=== PATIENT | female | born 1950 | race Caucasian/White ===

== ENCOUNTER 2018-12-11 01:37 | Outpatient (CLI) | payer MEDICARE, BC, SELFPAY ==
--- NOTE | 2018-12-11 11:21 | DI.MAMMO_ITS ---
SYMPTOM/DIAGNOSIS: SCREENING, Z12.31 MAMMOGRAMS: Mammograms were interpreted according to the usual protocol including computer analysis with CAD system, tomosynthesis and C view imaging. Comparison is made with exams from [id number]. The breasts are composed of heterogeneously dense fibroglandular tissue, breast density, Category C. No suspicious masses or suspicious microcalcifications are seen. There has been no significant change. IMPRESSION: Category 1C, negative mammogram. Yearly screening mammography is recommended. [facility] ASSESSMENT OF FINDINGS: Negative. Category 1. Patient will receive a letter notifying them of these results. Bi-RADS category C. The breasts are heterogeneously dense, which may obscure small masses.
== END 2018-12-11 01:57 ==
PROVIDERS: PCP Family Medicine; Visit Provider Family Medicine
DX: Z12.31 Encounter for screening mammogram for malignant neoplasm of breast (principal)
CPT/HCPCS: 77063; 77067

== ENCOUNTER 2019-12-06 11:03 | Outpatient (CLI) | payer MEDICARE, BC, SELFPAY ==
--- NOTE | 2019-12-06 10:59 | DI.RAD_ITS ---
EXAM: XR KNEE RT 3V AP,LAT,ELIZABET CLINICAL HISTORY: KNEE PAIN TECHNIQUE: COMPARISON: No exams were available for comparison FINDINGS: Three views were obtained. Cartilaginous joint spaces appear fairly well maintained. Minimal margin al osteophyte formation noted at the medial tibiofemoral joint. No other significant bony abnormalit y seen. IMPRESSION: Minimal degenerative changes of medial tibiofemoral joint.
== END 2019-12-06 11:23 ==
PROVIDERS: PCP Family Medicine; Referring Provider Family Medicine; Visit Provider Student in an Organized Health Care Education/Training Program
DX: M25.561 Pain in right knee (principal); M17.11 Unilateral primary osteoarthritis, right knee
CPT/HCPCS: 73562; 99214

== ENCOUNTER 2020-01-24 08:52 | Outpatient (CLI) | payer MEDICARE, BC, SELFPAY ==
--- NOTE | 2020-01-24 11:00 | DI.RAD_ITS ---
EXAM: XR SHOULDER RT COMPLETE 2+V INDICATION: r shoulder pain M25.519. COMPARISON: No exams were available for comparison TECHNIQUE: 2D digital imaging was performed. FINDINGS: No fracture or dislocation is seen. There are mild degenerative changes of the AC joint and glenoh umeral joint. The humeral head is normally position. No tendon or joint space calcifications are se en. IMPRESSION: Mild degenerative changes. DATA REPOSITORY: RADIATION DOSE DELIVERED:
== END 2020-01-24 09:12 ==
PROVIDERS: PCP Family Medicine; Visit Provider Family Medicine
DX: M25.511 Pain in right shoulder (principal); M19.011 Primary osteoarthritis, right shoulder
CPT/HCPCS: 73030

== ENCOUNTER → 2020-07-21 10:56 | Outpatient (BNVA) | payer MEDICARE, BC, SELFPAY | PROVIDERS: PCP Family Medicine; Referring Provider Family Medicine; Visit Provider Student in an Organized Health Care Education/Training Program | DX: M25.511 Pain in right shoulder (principal); X50.9XXA Other and unspecified overexertion or strenuous movements or postures, initial encounter; I10 Essential (primary) hypertension | CPT/HCPCS: 99213 ==

== ENCOUNTER 2020-08-05 03:34 | Outpatient (CLI) | payer MEDICARE, BC, SELFPAY ==
--- NOTE | 2020-08-05 06:45 | DI.MRI_ITS ---
EXAM: MR UPPER JOINT RT WO CLINICAL HISTORY: RT SHOULDER PAIN, ROTATOR CUFF RUPTURE,M75.100,M25.519. TECHNIQUE: Multiplanar multisequence MRI was performed. COMPARISON: Plain films dated 24 January 2020. FINDINGS: Bones: There is no fracture or contusion pattern. There is a small amount of fluid in the AC joint and mild hypertrophic changes. There is a full-thickness tear of the supraspinatus tendon with retraction to the level of the glenoid. There is moderate muscle atrophy, Goutallier grade 3. There is also abnor mal high signal in the infraspinatus tendon consistent with a partial tear versus tendinitis. There i s no infraspinatus muscle atrophy. The subscapularis, teres minor and biceps tendons are intact. Th ere is a small amount of fluid in the subcoracoid bursa. The labrum appears intact. IMPRESSION: Full-thickness tear with retraction of the supraspinatus tendon. Infraspinatus tendinitis versus par tial tear. DATA REPOSITORY:
== END 2020-08-05 03:54 ==
PROVIDERS: PCP Family Medicine; Visit Provider Student in an Organized Health Care Education/Training Program
DX: M75.101 Unspecified rotator cuff tear or rupture of right shoulder, not specified as traumatic (principal); M25.511 Pain in right shoulder
CPT/HCPCS: 73221

== ENCOUNTER 2020-08-15 08:23 | Outpatient (CLI) | payer MEDICARE, BC, SELFPAY ==
[2020-08-16 17:56] LABS: COVID-19 RT-PCR Result NEGATIVE (Negative)
== END 2020-08-15 08:43 ==
PROVIDERS: PCP Family Medicine; Visit Provider Student in an Organized Health Care Education/Training Program
DX: M75.121 Complete rotator cuff tear or rupture of right shoulder, not specified as traumatic (principal)
CPT/HCPCS: U0003

== ENCOUNTER 2020-08-20 09:38 | Day surgery (SDC) | payer MEDICARE, BC, SELFPAY ==
[2020-08-20 09:47] VITALS: BP 133/83; PULSE 84; RESP 20; TEMP 36.7; O2SAT 94
--- NOTE | 2020-08-20 10:03 | W.PM.DSUDISC ---
Discharge Plan Disposition Patient Disposition: HOME Condition: Good Discharge Details Reason For Visit: Right Rotator Cuff Tear Attending Provider: Ridge Harrison Primary Care Provider: Ruth Jean Baptiste Home Meds and New Rx's Prescriptions: New acetaminophen 500 mg tablet 1,000 mg PO Q8H PRN (Reason: pain) Qty: 90 RF: 3 celecoxib 200 mg capsule 200 mg PO BID PRN (Reason: pain) Qty: 60 RF: 1 oxycodone 5 mg tablet 5 mg PO Q6H Qty: 10 RF: 0 Continued mupirocin 2 % ointment 1 applic Topical BID PRNRF: 0 famotidine 20 MG tablet 1 tab PO bid prn RF: 0 epinephrine [EpiPen 2-Melchor] 0.3 MG/0.3 ML auto-injector 0.3 mg IM ONCE Qty: 1 RF: 2 acyclovir [Zovirax] 30 GM ointment 1 applic Topical TID PRN Qty: 30 RF: 4 Discharge Instructions Additional Instructions: If Celebrex is too expensive, you may take 1-2 Aleve (Naproxen) twice a day in its place. Physical Therapy should start between 2 and 3 weeks after surgery. Stand Alone Forms: Hunter reardon/RCR Referrals: Ridge Harrison MD [ [facility] STAFF PHYSICIAN] - Equipment/Supplies: Sling Activity:: In sling Remove Dressings/Wound Care:: 72 hours Shower/Bathe:: 72 hours Diet:: As Tolerated Discharge Orders Discharge Orders: Discharge Order (Routine); Ordered 08/20/20 Ordered By: Ridge Harrison DS: Diagnosis Discharge Diagnosis (1) Complete tear of right rotator cuff: Status: Chronic (2) Arthritis of right acromioclavicular joint: Status: Acute (3) Superior labrum [id number] (SLAP) tear of right shoulder: Status: Acute
[2020-08-20] MEDS: Lactated Ringers 1,000 ML 80 ML IV ×2 (10:44→13:15)
[2020-08-20] MEDS: Bupivacaine LIPOSOME/PF 133 MG/10 ML VIAL IJ (11:18)
[2020-08-20] MEDS: Bupivacaine 0.5% Pres-Free 30 ML VIAL (11:18)
[2020-08-20] MEDS: ceFAZolin 2 GM/50 ML BAG IVPB (12:05)
[2020-08-20] MEDS: EPINEPHrine 30 MG/30 ML VIAL (13:21)
[2020-08-20 14:44] VITALS: BP 125/64; PULSE 70; RESP 18; TEMP 36.4; O2SAT 97
--- NOTE | 2020-08-20 14:47 | W.PM.OP ---
Date of service: 08/20/20 Time of Service: 14:47 Operative Note Operative Note DATE OF PROCEDURE: 08/20/20 PRE-OP DIAGNOSIS: Right Rotator Cuff Tear - Supraspinatus, Right AC Arthritis POST-OP DIAGNOSIS: same PROCEDURE: - Mini-Open Distal Clavicle Excision - Arthroscopic Rotator Cuff Repair - Extensive debridement of anterior and posterior glenohumeral joint and rotator cuff - Subacromial Debridement with Acromioplasty SURGEON: Ridge Harrison GRATING MACHINE OPERATOR: Brent Mckeon ANESTHESIA: GETA and regional ESTIMATED BLOOD LOSS: 0 PATHOLOGY: none sent COMPLICATIONS: None Patient was transported to: PACU Patient's condition: stable Indications: I have seen Jo in clinic for a painful shoulder. Pathology was confirmed based on MRI and exam findings. Nonoperative measures were exhausted but disability and pain persisted. I discussed shoulder arthroscopy and procedures. I reviewed the risks of the procedures to include, but not limited to, bleeding, infection, pain, stiffness, damage to nerves or vessels, recurrence, hardware failure, blood clot. Despite these risks, the patient elected to proceed. Findings: There were signs of arthrosis of the distal clavicle; a 1cm wedge was resected A diagnostic arthroscopy was performed with the following findings: Articular Side - Glenohumeral Joint: Minimal arthritic change - Labrum: No labral tear. No anchor detachment - Cuff: Complete tear of supraspinatus with an attachment to infraspinatus - Biceps: No tear, no inflammation Subacromial Side - Bursal: Thick inflammatory changes - Rotator Cuff: Large stump of tissue attached laterally at the tuberosity with a split torn L shaped supraspinatus tear medial to the glenoid - Mild anterolateral spur Procedure Description: Jo was greeted in the preoperative holding area where the correct side was identified and marked. The consent was reviewed with the patient and signed. The history and physical was updated. All questions were answered. Jo was taken back to the PACU for administration of an intrascalene nerve block. Jo was then taken to the operating room. The patient was placed into the supine position on the operating room table. A general anesthetic was administered. She was then positioned in the beach chair position. All bony prominences were well padded. The head was placed in a foam heading and priming operator in a neutral position. Prophylactic antibiotics in the form of Cefazolin were administered. The right arm/shoulder was then prepped with Chloraprep and draped in a standard fashion with stockinette and shoulder drape. A timeout to confirm correct identity, side and site, procedure, allergies, anesthesia, and medical concerns was performed. The arm was placed into a pneumatic marcum, SPIDER2. The distal clavicle was approached through a 2 centimeter incision within Shana's lines. This was made overlying the AC joint. The skin was incised sharply. The deeper tissues dissected with electrocautery. The clavipectoral fascia was identified and incised longitudinally off of the distal clavicle and onto the acromion. This was reflected subperiosteally to expose the distal clavicle and the AC joint. With adequate exposure a 1 cm bony resection was made using an oscillating saw. This is angled posteriorly to avoid any posterior impingement. Once it was fully resected, it was inspected to make sure it is of adequate width. A rasp was used to smooth the bony edges inferiorly and posteriorly primarily. A small amount of bone wax was placed on the end of the distal clavicle. The wound was thoroughly irrigated. There is no active bleeding. The clavipectoral fascia was then closed with a 0 Vicryl in a watertight fashion. The subcutaneous tissues were then reapproximated with a 2-0 Vicryl. The shoulder arthroscopy was then performed. The glenohumeral joint was injected with 20 cc of normal saline with good flow back. A standard posterior portal was made and the joint was entered atraumatically with a blunt arthroscope. Once inside we had good visualization of the structures of the glenohumeral joint. An anterior portal was established with spinal needle localization. A 6.5 mm cannula was inserted. A probe was then used to perform a diagnostic arthroscopy. There is noted to be no significant cartilage damage of the glenoid humeral joint. The labrum was intact anteriorly and posteriorly. There were no loose bodies in the inferior pouch. The superior rotator cuff was torn. The infraspinatus was well attached. The exposed footprint started posteriorly and extended anteriorly to the point of being full-thickness. The biceps tendon was without tearing. The subscapularis was intact. There was notable inflammatory changes seen around the shoulder itself and these were debrided on the inside with the anterior to posteriorly. Some the rotator was also debrided for visualization of the subscapularis The arthroscope was then inserted into the subacromial space. The 6.5 mm cannula was placed lateral to the CA ligament. A complete bursectomy is performed anteriorly, posteriorly, and laterally with electrocautery and shaver. This had excellent exposure of the rotator cuff. 2 lateral working portals were then established 1 with a 7.5 mm cannula the other with a 6.5 mm cannula. The bursal side rotator cuff was notably torn with the infraspinatus attached to the tuberosity. The stump of the supraspinatus tendon was seen well medial to the glenoid. There is a portion of the supraspinatus which extended and attached and merged with the infraspinatus. There is also substantial amount of anterior tissue, likely from the rotator interval, which was present as well. The exposed tuberosity was debrided down to reduce healing. A grasper was used to mobilize the soft tissues to evaluate mobility. Unfortunately, there is very little mobility of the supraspinatus stump. Therefore I started with electrocautery to remove any bursal tissue attached to it and to expose the undersurface of the acromion all the way to the scapular spine. I also used tissue liberator's to free up the surfaces of the supraspinatus tendon for better mobility. There was this attached portion of the supraspinatus stump to the infraspinatus which I left intact. I considered an interval slide but I did not think was going to give me any further lateral motion of the stump and I was concerned that would lose whatever benefit that extension was providing. Therefore, I performed a marginal convergence working to bring the stump of the supraspinatus tendon more lateral. There still is very little mobility and I utilize the rotator interval tissue to help move this tissue from posterior to anterior and more lateral. 2 Medial Row anchors were then placed. These were 4.5 mm Mytec Healix anchors. The more posterior anchor was utilized to pull some of the infraspinatus and attachment of the remnant supraspinatus down to the footprint. The more anterior anchor was then utilized to bring the converged tissue back down. Once again, utilizing some of the rotator interval. These were placed with a retrograde suture passing device in a horizontal mattress fashion. This was able to mobilize the tissue significantly such that there was no exposed joint. However, the most anterior 4 mm of the tuberosity had tissue at the articular margin but not much over it. However, there was notable improvement from initial state. Therefore I went ahead and tied the medial row sutures. A lateral anchor was utilized to secure the posterior anchors once again trying to secure the tissue from posterior to anterior. There was a small anterolateral spur. A 5.0 mm solis was then inserted from the posterior portal while being viewed from the lateral portal. The anterolateral corner of the acromion was then resected in plane with the posterior slope of the acromion. The scope equipment was removed from the shoulder. Excess fluid was evacuated. The portal sites were closed with 3-0 Monocryl. The wounds were dressed with Steri-Strips, 4 x 4's, ABDs, Medipore tape. A sling was applied. The patient tolerated the procedure well and was returned to the PACU in a stable condition suffering no known complication.
[2020-08-20 14:49] VITALS: BP 115/61; PULSE 72; RESP 21; TEMP 36.4; O2SAT 96
[2020-08-20 14:54] VITALS: BP 112/68; PULSE 71; RESP 20; TEMP 36.4; O2SAT 95
[2020-08-20 15:10] VITALS: BP 119/73; PULSE 73; RESP 19; TEMP 36.6; O2SAT 97
[2020-08-20 15:55] VITALS: BP 112/68; PULSE 70; RESP 18; TEMP 36.5; O2SAT 94
== END 2020-08-20 16:54 | disposition home or self-care (01) ==
PROVIDERS: PCP Family Medicine; Visit Provider Student in an Organized Health Care Education/Training Program
PROC: (CPT 29827; principal; 2020-08-20 13:15)
DX: M75.121 Complete rotator cuff tear or rupture of right shoulder, not specified as traumatic (principal)
CPT/HCPCS: 29827; 23120; 29826; 76942; L3670; J0690; J1100; J2001; J2405

== ENCOUNTER 2020-09-16 19:43 | Inpatient (IN) | payer MEDICARE, BC, SELFPAY ==
[2020-09-16] VITALS (10 sets, daily range): BP systolic 147–174; BP diastolic 61–87; PULSE 60–85; RESP 14–24; TEMP 36.6–37.1; O2SAT 97–100
--- NOTE | 2020-09-16 19:45 | W.ED.GENAD ---
Discharge Plan Disposition Patient Disposition: [facility] INPATIENT Condition: Fair Discharge Details Chief Complaint: Abd Prob Reason For Visit: SMALL BOWEL OBSTRUCTION Admit Date/Time: 09/16/20 21:16 Admit Provider: Margarita Whittaker Attending Provider: Margarita Whittaker Primary Care Provider: Ruth Jean Baptiste ED Provider: Bibi Christie Home Meds and New Rx's Prescriptions: No Action mupirocin 2 % ointment 1 applic Topical BID PRNRF: 0 famotidine 20 MG tablet 1 tab PO bid prn RF: 0 epinephrine [EpiPen 2-Melchor] 0.3 MG/0.3 ML auto-injector 0.3 mg IM ONCE Qty: 1 RF: 2 acyclovir [Zovirax] 30 GM ointment 1 applic Topical TID PRN Qty: 30 RF: 4 acetaminophen 500 mg tablet 1,000 mg PO Q8H PRN (Reason: pain) Qty: 90 RF: 3 celecoxib 200 mg capsule 200 mg PO BID PRN (Reason: pain) Qty: 60 RF: 1 Medical Decision Making Patient is a pleasant 70-year-old female presenting today with chief complaint of sudden onset abdominal pain. She reports the pain began at 6 PM when she was sitting in a chair. Reports a sudden onset of severe pain and indicates a low central abdomen. States the pain can radiate into her back. Endorses nausea and vomiting. Last ate at noon at which time she had potato skins. States she had been feeling well after eating initially. States she did have a small bowel movement this evening but is not passing any flatus. 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 She is subsequently followed yearly by oncology. Last had a scan on 03/27/2020 at which time the exam was noted to be stable. Of note, patient did not have any evidence to suggest aneurysm. Labs were stable at that time. Patient has not had pain like this historically. On exam, patient appears very uncomfortable. She is writhing and moaning in pain. Her abdomen is exquisitely tender and distended. Firm to palpation with guarding. This is particularly significant in the low central abdomen. I do not appreciate a pulsatile mass but secondary to her moving, my exam is limited. She is 2+ distal pulses in her lower extremities. No CVA tenderness. Lungs and cardiac exam are normal. Plan for immediate CT scan. I am concerned with radiation into the back which she may have aortic pathology. Also considered potential obstruction based on the patient's previous surgical interventions. Patient will be given IV acetaminophen. Patient is feeling improved after IV Zofran. I reviewed the imaging and did not appreciate any aortic involvement. However, her exam is concerning for small bowel obstruction. We will augment the Tylenol with Toradol. FINDINGS: Pulmonary arteries: Normal. No pulmonary emboli. Aorta: No aortic aneurysm. No aortic dissection. Lungs: No consolidation. No masses. Pleural space: Unremarkable. No pneumothorax. No pleural effusion. Heart: No cardiomegaly. No pericardial effusion. Lymph nodes: Unremarkable. No enlarged lymph nodes. Bones/joints: No acute fracture. Soft tissues: Unremarkable. IMPRESSION: No aneurysm or dissection of the thoracic aorta FINDINGS: Aorta: No aortic aneurysm. No aortic dissection. Celiac trunk and mesenteric arteries: No occlusion or significant stenosis. Renal arteries: No occlusion or significant stenosis. Right iliac arteries: No occlusion or significant stenosis. Left iliac arteries: No occlusion or significant stenosis. Liver: No mass. Gallbladder and bile ducts: Unremarkable. No calcified stones. No ductal dilation. Pancreas: Unremarkable. No mass. No ductal dilation. Spleen: Unremarkable. No splenomegaly. Adrenals: Unremarkable. No mass. Kidneys and ureters: Unremarkable. No solid mass. No hydronephrosis. Stomach and bowel: Multiple loops of mildly dilated distal small bowel concerning for obstruction. No mucosal thickening. Appendix: A normal appendix is identified. Intraperitoneal space: Unremarkable. No free air. No significant fluid collection. Lymph nodes: Unremarkable. No enlarged lymph nodes. Urinary bladder: Unremarkable. No mass. Reproductive: Unremarkable as visualized. Bones/joints: No acute fracture. No dislocation. Soft tissues: Unremarkable. IMPRESSION: No aneurysm or dissection of the abdominal aorta. Multiple loops of mildly dilated distal small bowel concerning for obstruction. Patient continues to writhe in pain after toradol and tylenol. Patients PCP, Dr. Jean Baptiste is at bedside. We discussed ativan. Patient given half milligram of Ativan and is feeling much improved. Consulted with Dr. Whittaker. She advised NGT. She agrees to admission and will place orders. Patient [address] NG tube. However, even with the tube in place, patient was not able to tolerate at this and continue to vomit and gag probably dislodging the tube. We will hold off on this. She is denying any nausea at this time. Patient has remained n.p.o. since being here. HPI General Mode of arrival: ambulatory. Date/Time Provider Initiated Documentation: 09/16/20 19:45. Limitations to Documentation: no limitations. Information obtained by: patient, family (signficant others), RN notes reviewed and old records reviewed (most recent labs and imaging from [facility]). History of Present Illness 70 year old F presents to the emergency department with the chief complaint of severe abdominal pain, described as moderate, with intensity rated at 7. Quality is described as stabbing, and is localized to the abdomen. Patient reports radiation to back. Patient started experiencing this hour(s) (1800) and it has been constant. No relieving factors improve symptom(s), No exacerbating factors reported . Patient notes loss of appetite and nausea/vomiting; denies chest pain, cough, diaphoresis, fever/chills, rash, shortness of breath and weakness. Patient did receive the following treatments prior to arrival, none Related Data Home Medications Medication Instructions Recorded Confirmed famotidine 1 tab PO bid prn tab-cap 02/24/13 09/16/20 epinephrine [EpiPen 2-Melchor] 0.3 mg IM ONCE #1 pen 04/26/15 09/16/20 acyclovir [Zovirax] 1 applic TOPICAL TID PRN #30 gm 03/28/18 09/16/20 mupirocin 2 % topical ointment 1 applic TOPICAL BID PRN gm 12/05/18 09/16/20 acetaminophen 1,000 mg PO Q8H PRN #90 tab 08/20/20 09/16/20 celecoxib 200 mg PO BID PRN #60 cap 08/20/20 09/16/20 Previous Rx's Medication Instructions Recorded acyclovir [Zovirax] 1 applic TOPICAL TID PRN #30 gm 03/28/18 acetaminophen 1,000 mg PO Q8H PRN #90 tab 08/20/20 celecoxib 200 mg PO BID PRN #60 cap 08/20/20 Allergies Allergy/AdvReac Type Severity Reaction Status Date / Time venom-wasp Allergy Severe Anaphylaxsi Unverified 09/16/20 19:52 s venom-honey bee Allergy Unknown Verified 09/04/20 10:53 Review of Systems Constitutional Constitutional: Reports as per HPI, Denies chills, Denies fatigue, Denies fever(s) and Denies headache(s) ENT Ears, Nose, Mouth, and Throat: Denies headache(s) Cardiovascular Cardiovascular: Reports as per HPI, Denies chest pain and Denies dyspnea Respiratory Respiratory: Reports as per HPI, Denies cough and Denies dyspnea Gastrointestinal Gastrointestinal: Reports as per HPI Musculoskeletal Musculoskeletal: Reports as per HPI and Denies back pain Integumentary/Breasts Skin/Breast: Reports as per HPI and Denies rash Neurologic Neurologic: Reports as per HPI and Denies headache(s) Endocrine Endocrine: Denies fatigue [facility] Medical History Alcohol intake above recommended sensible limits 03/05/14 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) [facility] partial gastrectomy Dec 2012, Gleevec tx History of postoperative nausea and vomiting Hyperlipidemia Knee pain h/o knee injury Nasal lesion (03/28/18) Neck pain PAC (premature atrial contraction) (07/26/17) frequent - see 07/26/17 Pain in left buttock 04/05/17 Quit smoking 1985 Trigger point of right shoulder region (03/28/18) infraspinatus and rhomboid Vaginal atrophy (05/03/16) Surgical History Dilation and curettage uterine perforation H/O arthroscopy of knee Left - ~1977 Right - 2017 History of carpal tunnel release Right PROCEDURES TUMOR REMOVAL 01/11/2013 S/P dilatation and curettage uterine perforatioin Status post arthroscopy of right shoulder (08/20/20) Mini-Open Distal Clavicle Excision; Arthroscopic Rotator Cuff Repair - Supraspinatus; Extensive debridement of anterior and posterior glenohumeral joint and rotator cuff; Subacromial Debridement with Acromioplasty Family History Mother , AGE 76 Essential hypertension Alzheimers disease Hyperlipidemia Father , AGE 78 Essential hypertension Heart disease Hyperlipidemia Stroke Brother Essential hypertension Hyperlipidemia Maternal Grandmother , AGE 78 Essential hypertension Heart disease Paternal Grandmother , AGE 89 Alzheimers disease Heart disease Social History Smoking/Tobacco Use Status: Former Tobacco Use Quit Date: 11/28/85 Second Hand Exposure: Yes Alcohol Intake: current Alcohol Intake frequency: 0-2 drinks per day Alcohol type: beer, wine and hard liquor Drug use: Never Substance use type: does not use Caregiver/Support person: No Household members: spouse Pets and animals: Yes Pets and animals: cat(s) Sexually active: Yes Do you think of yourself as: straight/heterosexual Current gender identity: female What is your relationship status?: How often do you talk on the phone with friends or family?: three or more times per week How often do you get together with friends or relatives?: decline to answer How often do you attend evangelical or mandaen services?: decline to answer Do you belong to any clubs or organized social groups?: yes Panel score (0-1 are the most socially isolated patients): 3 What type of physical activity do you participate in: walking and other Details: some tennis Duration: 45-60 minutes/day Frequency: 5-6 times per week Sindi/Denominational: None Special sindi needs: No Seatbelt use: always Helmet use: Yes Helmet use: always Drive intox or ride w/intox school boat driver: No Do you feel safe at home: Yes Do you feel safe in your relationship?: Yes Exam Const General: cooperative, not healthy appearing, uncomfortable, well developed, anxious, not diaphoretic and ill appearing acutely Nutritional Appearance: average body habitus and well nourished Orientation: alert and awake [facility] Head: normal to inspection Mouth: moist mucous membranes Resp Effort & Inspection: normal respiratory effort, able to speak in complete sentences and no respiratory distress Auscultation: clear to auscultation bilaterally, no rales, no rhonchi and no wheezes Cardio Rate: regular rate Rhythm: regular rhythm Heart Sounds: S1 normal and S2 normal GI Inspection: no abdominal wall ecchymosis, distended, no large pannus and scar Palpation: no hepatosplenomegaly, firm (lower half of abdomen), guarding in the LLQ and in the RLQ, no hernias, no masses, no pulsatile masses, tender (diffuse pain) with rebound tenderness and No ascites Percussion: normal to percussion Auscultation: hypoactive bowel sounds Back/Spine/Pelvis Back: no CVA tenderness Skin General skin exam: no rashes or lesions noted Trauma: no lacerations or abrasions Neuro General: patient alert and patient awake Cognition: normal cognition Speech: speech normal Gait: normal gait Extrem General: normal to inspection, capillary refill normal (2+ distal pulses), no pedal edema and no calf tenderness Psych Appearance: grossly normal and well kempt Mental Status: mental status grossly normal Speech and Movement: speech and movement normal
--- NOTE | 2020-09-16 20:00 | RT.EKG_ITS ---
APPROVED REPORT Exam: Resting ECG Patient Location: E HR:67 bpm ECG Measurements Heart Rate 67 AXIS DE 152 P 55 QRSd 74 QRS 42 QT 428 T 51 QTc 453 Conclusion Sinus rhythm...normal P axis, V-rate 60- 99 Consider left ventricular hypertrophy...(S V1+R V5/V6) >3.25mV
[2020-09-16] MEDS: Ondansetron 4 MG/2 ML VIAL (20:09)
--- NOTE | 2020-09-16 20:15 | DI.CT_ITS ---
EXAM: CT THORAX ABD/PEL CTA CLINICAL HISTORY: severe lower abdominal pain radiating into back. TECHNIQUE: Imaging Protocol: Axial computed tomography images of the with coronal and sagittal refo rmatted images were created and reviewed CONTRAST MATERIAL: Intravenous: Omnipaque 350 Contrast volume:80 cc contrast route:IV - Oral: no COMPARISON: No exams were available for comparison FINDINGS: CHEST: Tracheobronchial tree: Patent where visualized. Mediastinum and [place]: No dominant adenopathy or fluid collection. Pulmonary parenchyma: No consolidation or dominant measurable mass. No architectural distortion. Pleura: No effusion or pneumothorax. Aorta: Thoracic portion non-dilated. Motion at the ascending aorta. Mild atherosclerotic changes. Lymph nodes: Within normal limits. Mild degenerative changes in the spine. No evidence of fracture. ABDOMEN: Liver: Normal density. No measurable mass. Gallbladder and biliary tract: No radiodense calculus or dilation. Pancreas: Normal density, no abnormal calcifications or inflammatory process. Spleen: Normal. Kidneys: Normal size, contour and axis. No radiodense stones or obstructive uropathy. No masses seen. Adrenal glands: No masses seen. Lymph nodes: Within normal limits. Aorta: Abdominal portion non-dilated. Minimal atherosclerotic changes. No evidence of dissection or branch vessel occlusion. PELVIS: Bladder: Symmetric distention, no gross wall thickening. Bowel: There is a small hiatal hernia. There is dilatation loops of small bowel seen in the mid abdo men and pelvis. There is no wall thickening or pneumatosis. More proximal bowel loops are nondilate d. There is no gastric or colonic distension. The appendix appears normal. Peritoneal cavity: No ascites, collection or mesenteric inflammatory response. No free air. Reproductive organs: Within normal limits. Bones: Disc bulging and facet degenerative changes in the lower lumbar spine. IMPRESSION: Findings consistent with partial small bowel obstruction. There are mild atherosclerotic changes but no evidence significant stenosis, dissection or aneurysm. RADIATION DOSE DELIVERED: LINK-TO-SR Total DLP DATA REPOSITORY: All CT scans at this facility are submitted to the National Radiology Data Registry (NRDR) Dose Index Registry (DIR) with the [employer] (ACR). RADIATION OPTIMIZATION: All CT scans at this facility use at least one of these dose optimization te chniques: automated exposure control; mA and/or kV adjustment per patient size (includes targeted exa ms where dose is matched to clinical indication); or iterative reconstruction.
[2020-09-16 20:17] LABS: Abs Immature Grans 0.06 10^3/uL (0.0-0.06); Absolute Basophil Count 0.06 10^3/uL (0.0-0.2); Absolute Eosinophil Count 0.18 10^3/uL (0.0-0.7); Absolute Lymphocyte Count 2.11 10^3/uL (1.2-3.4); Absolute Monocyte Count 0.71 10^3/uL (0.1-0.8); Absolute Neutrophil Count 8.76 10^3/uL (1.2-6.7); Basophils % 0.5; Eosinophils % 1.5; HCT 36.2 % (36.0-46.0); HGB 12.3 g/dL (11.2-15.7); Immature Grans % 0.5; Lymphocytes % 17.8; MCH 31.9 pg (27.0-33.0); MPV 8.9 fL (8.0-11.0); Neutrophils % 73.7; Nucleated RBC 0 %; Platelet Count 305 10^3/uL (130-400); RBC 3.85 10^6/uL (3.93-5.22); RDW 11.9 % (11.7-14.6); RDW-SD 41.1 fL; WBC 11.88 10^3/uL (4.4-10.8)
[2020-09-16] MEDS: Lactated Ringers 1,000 ML 1000 ML IV (20:18)
[2020-09-16 20:34] LABS: ALT 17 U/L (14-59); AST 17 U/L (15-37); Albumin 4.4 g/dL (3.4-5.0); Alkaline Phosphatase 108 U/L (46-116); Anion Gap 5.6 mmol/L (3-11); BUN 14 mg/dL (7-18); Bilirubin, Total 0.9 mg/dL (0.2-1.0); CO2 33.4 mmol/L (21.0-32.0); CREATININE 0.75 mg/dL (0.55-1.02); Calcium 9.7 mg/dL (8.5-10.1); Chloride 100 mmol/L (98-107); Glucose 141 mg/dL (74-106); Lipase 97 U/L (73-393); Magnesium 2.1 mg/dL (1.8-2.4); Potassium 3.6 mmol/L (3.5-5.1); Sodium 139 mmol/L (136-145); Total Protein 7.8 g/dL (6.4-8.2)
[2020-09-16 20:36] LABS: Troponin I < 0.05 ng/mL (<0.06)
[2020-09-16] MEDS: ACETAMINOPHEN 1,000 MG/100 ML BTL 400 MG IVPB (20:41)
[2020-09-16] MEDS: Omnipaque 350 MG/ML 100 ML BTL IV (20:44)
[2020-09-16] MEDS: Normal Saline - Diluent 50 ML VIAL IV (20:45)
[2020-09-16] MEDS: Ketorolac 30 MG/ML VIAL IVP (21:01)
--- NOTE | 2020-09-16 21:05 | DI.VRAD_ITS ---
PROCEDURE INFORMATION: Exam: CT Angiography Chest With Contrast Exam date and time: 09/16/2020 8:16 PM Age: 70 years old Clinical indication: Other: Severe lower abdominal pain radiating into back TECHNIQUE: Imaging protocol: Computed tomographic angiography of the chest with intravenous contrast. 3D rendering (Not supervised by radiologist): MIP and/or 3D reconstructed images were created by the technologist. Radiation optimization: All CT scans at this facility use at least one of these dose optimization techniques: automated exposure control; mA and/or kV adjustment per patient size (includes targeted exams where dose is matched to clinical indication); or iterative reconstruction. Contrast material: OMNIPAQUE 350; Contrast volume: 80 ml; Contrast route: INTRAVENOUS (IV); COMPARISON: No relevant prior studies available. FINDINGS: Pulmonary arteries: Normal. No pulmonary emboli. Aorta: No aortic aneurysm. No aortic dissection. Lungs: No consolidation. No masses. Pleural space: Unremarkable. No pneumothorax. No pleural effusion. Heart: No cardiomegaly. No pericardial effusion. Lymph nodes: Unremarkable. No enlarged lymph nodes. Bones/joints: No acute fracture. Soft tissues: Unremarkable. IMPRESSION: No aneurysm or dissection of the thoracic aorta. PROCEDURE INFORMATION: Exam: CT Angiography Abdomen and Pelvis With Contrast Exam date and time: 09/16/2020 8:16 PM Age: 70 years old Clinical indication: Other: Severe lower abdominal pain radiating into back TECHNIQUE: Imaging protocol: Computed tomographic angiography of the abdomen and pelvis with intravenous contrast material. 3D rendering (Not supervised by radiologist): MIP and/or 3D reconstructed images were created by the technologist. Radiation optimization: All CT scans at this facility use at least one of these dose optimization techniques: automated exposure control; mA and/or kV adjustment per patient size (includes targeted exams where dose is matched to clinical indication); or iterative reconstruction. Contrast material: OMNIPAQUE 350; Contrast volume: 80 ml; Contrast route: INTRAVENOUS (IV); COMPARISON: No relevant prior studies available. FINDINGS: Aorta: No aortic aneurysm. No aortic dissection. Celiac trunk and mesenteric arteries: No occlusion or significant stenosis. Renal arteries: No occlusion or significant stenosis. Right iliac arteries: No occlusion or significant stenosis. Left iliac arteries: No occlusion or significant stenosis. Liver: No mass. Gallbladder and bile ducts: Unremarkable. No calcified stones. No ductal dilation. Pancreas: Unremarkable. No mass. No ductal dilation. Spleen: Unremarkable. No splenomegaly. Adrenals: Unremarkable. No mass. Kidneys and ureters: Unremarkable. No solid mass. No hydronephrosis. Stomach and bowel: Multiple loops of mildly dilated distal small bowel concerning for obstruction. No mucosal thickening. Appendix: A normal appendix is identified. Intraperitoneal space: Unremarkable. No free air. No significant fluid collection. Lymph nodes: Unremarkable. No enlarged lymph nodes. Urinary bladder: Unremarkable. No mass. Reproductive: Unremarkable as visualized. Bones/joints: No acute fracture. No dislocation. Soft tissues: Unremarkable. IMPRESSION: No aneurysm or dissection of the abdominal aorta. Multiple loops of mildly dilated distal small bowel concerning for obstruction. Dictated and Authenticated by: Jared Lozano MD. Ordering:CAESAR Mtz MD
[2020-09-16] MEDS: LORazepam 2 MG/ML VIAL 1 MG IVP (21:16)
[2020-09-16] MEDS: Lactated Ringers 1,000 ML 125 ML IV (23:51)
[2020-09-17 00:49] VITALS: BP 147/80; PULSE 80; RESP 18; TEMP 37.1; O2SAT 97
[2020-09-17 01:02] LABS: Bilirubin Negative (Negative); Blood Trace-intact (Negative); Clarity Clear (Clear); Glucose Negative (Negative); Ketones Trace mg/dL (Negative); Leukocyte Esterase Negative (Negative); Nitrite Negative (Negative); Specific Gravity 1.015 (1.005-1.025); Urobilinogen 0.2 EU/dL (Up TO 0.2); pH 8.5 (5-8)
[2020-09-17 01:44] LABS: Bacteria Negative HPF (Negative); C & S Indicated? No; Casts Negative LPF (Negative); Crystals Negative HPF (Negative); Epithelial Cells Negative HPF (Negative); Mucus Negative (Negative); RBC Negative HPF (0-2); WBC 0-2 HPF (0-5)
[2020-09-17 06:59] LABS: Abs Immature Grans 0.02 10^3/uL (0.0-0.06); Absolute Basophil Count 0.02 10^3/uL (0.0-0.2); Absolute Eosinophil Count 0.02 10^3/uL (0.0-0.7); Absolute Lymphocyte Count 1.41 10^3/uL (1.2-3.4); Absolute Monocyte Count 0.66 10^3/uL (0.1-0.8); Absolute Neutrophil Count 7.01 10^3/uL (1.2-6.7); Basophils % 0.2; Eosinophils % 0.2; HCT 32.2 % (36.0-46.0); Immature Grans % 0.2; Lymphocytes % 15.4; MCH 31.8 pg (27.0-33.0); MCHC 34.2 % (32.0-36.0); MCV 93.1 fL (80-95); MPV 8.9 fL (8.0-11.0); Monocytes % 7.2; Neutrophils % 76.8; Nucleated RBC 0 %; Platelet Count 278 10^3/uL (130-400); RBC 3.46 10^6/uL (3.93-5.22); RDW 11.9 % (11.7-14.6); RDW-SD 40.7 fL; WBC 9.14 10^3/uL (4.4-10.8)
[2020-09-17 07:11] VITALS: BP 164/84; PULSE 74; RESP 17; TEMP 37.5; O2SAT 97
[2020-09-17 07:13] LABS: Anion Gap 6.3 mmol/L (3-11); BUN 12 mg/dL (7-18); CO2 29.7 mmol/L (21.0-32.0); CREATININE 0.71 mg/dL (0.55-1.02); Calcium 9.5 mg/dL (8.5-10.1); Chloride 100 mmol/L (98-107); Glucose 111 mg/dL (74-106); Potassium 3.7 mmol/L (3.5-5.1); Sodium 136 mmol/L (136-145)
[2020-09-17] MEDS: Lactated Ringers 1,000 ML 125 ML IV ×2 (07:38→16:09)
--- NOTE | 2020-09-17 08:24 | HPE_ITS ---
Date of service: 09/17/20 Time of Service: 08:24 Assessment and Plan Assessment and plan (1) Small bowel obstruction: Status: Acute Assessment and plan: A// Concern for SBO. Will keep NPO Pain is currently well controlled. Encouraged ambulation as tolerated. Hypoactive bowel sounds History of Present Illness History of Present Illness Chief Complaint: Small bowel obstruction Narrative: 70 y/o female with a history of laportomy for excision of gastrointestinal stromal tumor presented to the ER with sharp, severe pulsing pain in her abdomen. Directly behind her belly button. She attempted to have BM when this discomfort started, following a small BM her symptoms did not improve. She was not able to pass gas and her pain worsened, which prompted her to be seen by the ER. This morning her pain is improved, however persists. She describes this pain as now pulsing and crampy in nature. She has not passed any flatus overnight. She denies having any nausea or vomiting. 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) [facility] [place] partial gastrectomy Dec 2012, Gleevec tx History of postoperative nausea and vomiting Hyperlipidemia Knee pain h/o knee injury Nasal lesion (03/28/18) Neck pain PAC (premature atrial contraction) (07/26/17) frequent - see 07/26/17 Pain in left buttock 04/05/17 Quit smoking 1985 Trigger point of right shoulder region (03/28/18) infraspinatus and rhomboid Vaginal atrophy (05/03/16) Surgical History Dilation and curettage uterine perforation H/O arthroscopy of knee Left - ~1977 Right - 2017 History of carpal tunnel release Right PROCEDURES TUMOR REMOVAL 01/11/2013 S/P dilatation and curettage uterine perforatioin Status post arthroscopy of right shoulder (08/20/20) Mini-Open Distal Clavicle Excision; Arthroscopic Rotator Cuff Repair - Supraspinatus; Extensive debridement of anterior and posterior glenohumeral joint and rotator cuff; Subacromial Debridement with Acromioplasty Family History Mother , AGE 76 Essential hypertension Alzheimers disease Hyperlipidemia Father , AGE 78 Essential hypertension Heart disease Hyperlipidemia Stroke Brother Essential hypertension Hyperlipidemia Maternal Grandmother , AGE 78 Essential hypertension Heart disease Paternal Grandmother , AGE 89 Alzheimers disease Heart disease Social History Smoking/Tobacco Use Status: Former Tobacco Use Quit Date: 11/28/85 Second Hand Exposure: Yes Alcohol Intake: current Alcohol Intake frequency: 0-2 drinks per day Alcohol type: beer, wine and hard liquor Drug use: Never Substance use type: does not use Caregiver/Support person: No Household members: spouse Pets and animals: Yes Pets and animals: cat(s) Sexually active: Yes Do you think of yourself as: straight/heterosexual Current gender identity: female What is your relationship status?: How often do you talk on the phone with friends or family?: three or more times per week How often do you get together with friends or relatives?: decline to answer How often do you attend latter-day or christianity services?: decline to answer Do you belong to any clubs or organized social groups?: yes Panel score (0-1 are the most socially isolated patients): 3 What type of physical activity do you participate in: walking and other Details: some tennis Duration: 45-60 minutes/day Frequency: 5-6 times per week Sindi/Advent: None Special sindi needs: No Seatbelt use: always Helmet use: Yes Helmet use: always Drive intox or ride w/intox vibratory pile driver: No Do you feel safe at home: Yes Do you feel safe in your relationship?: Yes Meds Home Medications and Allergies Home Medications Medication Instructions Recorded Confirmed Type famotidine 1 tab PO bid prn tab-cap 02/24/13 09/16/20 History epinephrine [EpiPen 2-Melchor] 0.3 mg IM ONCE #1 pen 04/26/15 09/16/20 History acyclovir [Zovirax] 1 applic TOPICAL TID PRN #30 gm 03/28/18 09/16/20 Rx mupirocin 2 % topical ointment 1 applic TOPICAL BID PRN gm 12/05/18 09/16/20 History acetaminophen 1,000 mg PO Q8H PRN #90 tab 08/20/20 09/16/20 Rx celecoxib 200 mg PO BID PRN #60 cap 08/20/20 09/16/20 Rx Allergies Allergy/AdvReac Type Severity Reaction Status Date / Time venom-wasp Allergy Severe Anaphylaxsi Unverified 09/16/20 19:52 s venom-honey bee Allergy Unknown Verified 09/04/20 10:53 Exam Const General: cooperative, healthy appearing and in distress mild Orientation: alert and oriented x3 Resp Effort & Inspection: normal respiratory effort, no audible wheezes and no cough GI Palpation: soft, guarding (periumbilical and LLQ ) and tender Auscultation: hypoactive bowel sounds Results Labs Result diagrams: 09/17/20 06:30 09/17/20 06:30 Labs: Laboratory Results - last 24 hr 09/16/20 09/16/20 09/17/20 19:38 19:38 00:00 WBC 11.88 H RBC 3.85 L Hgb 12.3 Hct 36.2 MCV 94.0 MCH 31.9 MCHC 34.0 RDW 11.9 Plt Count 305 MPV 8.9 Immature Gran % 0.5 Neutrophils % 73.7 Lymphocytes % 17.8 Monocytes % 6.0 Eosinophils % 1.5 Basophils % 0.5 Nucleated RBC % 0 Absolute Neutrophils 8.76 H Absolute Lymphocytes 2.11 Absolute Monocytes 0.71 Absolute Eosinophils 0.18 Absolute Basophils 0.06 Sodium 139 Potassium 3.6 Chloride 100 Carbon Dioxide 33.4 H Anion Gap 5.6 BUN 14 Creatinine 0.75 Estimated GFR/1.73 m2 >= 60.00 Glucose 141 H Calcium 9.7 Magnesium 2.1 Total Bilirubin 0.9 AST 17 ALT 17 Alkaline Phosphatase 108 Troponin I < 0.05 Total Protein 7.8 Albumin 4.4 Lipase 97 Urine Color Yellow Urine Clarity Clear Urine pH 8.5 H Ur Specific [place] 1.015 Urine Protein Negative Urine Ketones Trace H Urine Blood Trace-intact H Urine Nitrite Negative Urine Bilirubin Negative Urine Urobilinogen 0.2 Ur Leukocyte Esterase Negative Urine RBC Negative Urine WBC 0-2 Ur Epithelial Cells Negative Urine Crystals Negative Urine Bacteria Negative Urine Casts Negative Urine Mucus Negative Ur Culture Indicated? No Urine Glucose Negative 09/17/20 09/17/20 06:30 06:30 WBC 9.14 RBC 3.46 L Hgb 11.0 L Hct 32.2 L MCV 93.1 MCH 31.8 MCHC 34.2 RDW 11.9 Plt Count 278 MPV 8.9 Immature Gran % 0.2 Neutrophils % 76.8 Lymphocytes % 15.4 Monocytes % 7.2 Eosinophils % 0.2 Basophils % 0.2 Nucleated RBC % 0 Absolute Neutrophils 7.01 H Absolute Lymphocytes 1.41 Absolute Monocytes 0.66 Absolute Eosinophils 0.02 Absolute Basophils 0.02 Sodium 136 Potassium 3.7 Chloride 100 Carbon Dioxide 29.7 Anion Gap 6.3 BUN 12 Creatinine 0.71 Estimated GFR/1.73 m2 >= 60.00 Glucose 111 H Calcium 9.5 Magnesium Total Bilirubin AST ALT Alkaline Phosphatase Troponin I Total Protein Albumin Lipase Urine Color Urine Clarity Urine pH Ur Specific [place] Urine Protein Urine Ketones Urine Blood Urine Nitrite Urine Bilirubin Urine Urobilinogen Ur Leukocyte Esterase Urine RBC Urine WBC Ur Epithelial Cells Urine Crystals Urine Bacteria Urine Casts Urine Mucus Ur Culture Indicated? Urine Glucose Last Vital Signs Temp 37.5 C 09/17/20 07:11 Pulse 74 09/17/20 07:11 Resp 17 09/17/20 07:11 BP 164/84 H 09/17/20 07:11 Pulse Ox 97 09/17/20 07:11 COVID-19 Screening Have you,or household,traveled outside [place] in last 14 days?: No Had IN PERSON contact w/suspected or confirmed C-19 person: No
[2020-09-17] MEDS: Ondansetron 4 MG/2 ML VIAL IVP (09:27)
[2020-09-17 14:21] LABS: COVID-19 RT-PCR UVMMC Result Negative (Negative)
[2020-09-17] MEDS: ACETAMINOPHEN 1,000 MG/100 ML BTL 400 MG IVPB (14:55)
[2020-09-17 15:50] VITALS: BP 143/76; PULSE 68; RESP 17; TEMP 36.4; O2SAT 97
[2020-09-17] MEDS: Normal Saline Flush 10 ML SYR IVP (16:09)
--- NOTE | 2020-09-17 16:37 | PHA.REVIEW ---
Pharmacy Admission Review - Admission Clinical Review (Last Reviewed 09/16/20 @ 20:51 by EVANGELINA Santiago) Small bowel obstruction (Acute) venom-wasp Allergy (Severe, Unverified 09/16/20 19:52) Anaphylaxsis venom-honey bee Allergy (Unknown, Verified 09/04/20 10:53) Height 5 ft 3 in Weight 54.9 kg - Renal Dosing Renal Dosing: BUN 12 mg/dL (7-18) 09/17/20 06:30 Creatinine 0.71 mg/dL (0.55-1.02) 09/17/20 06:30 Medications needing adjustments: Reviewed (CrCl ~53.35ml/min) - Anticoagulation Anticoagulation: Hgb 11.0 g/dL (11.2-15.7) L 09/17/20 06:30 Hct 32.2 % (36.0-46.0) L 09/17/20 06:30 Plt Count 278 10^3/uL (130-400) 09/17/20 06:30 Creatinine 0.71 mg/dL (0.55-1.02) 09/17/20 06:30 DVT Prohphylaxis: N/A Therapeutic Anticoagulation: N/A - Opiate Usage Evaluate Pain Scale/Pains Meds: Reviewed (morphine 2-4 mg IV/IM prn) Scheduled Bowel Reg ordered if on Opiates?: No (admitted for SBO) - Relevant Labs Sodium 136 mmol/L (136-145) 09/17/20 06:30 Potassium 3.7 mmol/L (3.5-5.1) 09/17/20 06:30 Chloride 100 mmol/L (98-107) 09/17/20 06:30 Magnesium 2.1 mg/dL (1.8-2.4) 09/16/20 19:38 Electrolytes, C-Reactive P, ESR: Reviewed - DM Control DM Control: Glucose 111 mg/dL (74-106) H 09/17/20 06:30 Insulin Dosing: N/A - Heart Failure/TX Heart Failure/TX: Troponin I < 0.05 ng/mL (<0.06) 09/16/20 19:38 EF%, KATE's, B-Blockers, Diuretics: Reviewed - BP Control BP Control: Blood Pressure 143/76 Blood Pressure 164/84 If elevated: Reviewed (no hx of htn/home meds) - Qtc Review If Elevated: Reviewed (QTc 453) - IV to PO Switch IV Medications: Reviewed - Home Meds Home Med List reviewed: Reviewed Relevent Home Meds Not ordered & why?: celecoxib, acyclover oint, mupiricon oint -- all PRN - Current meds Current Medication Order Review: Intervened (fixed famotidine order -- if pt is NPO, could order IV)
--- NOTE | 2020-09-17 17:03 | INITIAL_ITS ---
- If Service Date Differs Date of service: 09/17/20 Time of Service: 17:12 Care Management Initial Assess REASON FOR HOSPITALIZATION:: SBO PAST MEDICAL HISTORY/PAST SURGICAL HISTORY:: carpal tunnel, right knee lateral meniscus tear, HTN, elevated MCV, malignant GIST, hyperlipidemia, knee pain, nasal lesion, neck pain, uterine perforation dilation and curettage, L knee arthroscopy, carpal tunnel release, tumor removal, right shoulder arthroscopy PREVIOUS FUNCTIONAL STATUS/SOCIAL/FAMILY SUPPORTS:: Jo resides in [place], [place] with her , Darvin. 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 They remain independent at baseline in the community. CURRENT FUNCTIONAL STATUS:: Jo is lying in bed, eyes closed. She remains NPO at this time per RN. ADVANCE DIRECTIVES:: On file at [facility]. Alessio as agent, Tee Montague als alternate. Dr. Jean Baptiste as others to consult. Has patient been provided with info about the portal/API?: Yes Did the patient sign up for the portal?: Yes (Previously) CODE STATUS:: Full Code INSURANCE COVERAGE / FINANCIAL ISSUES:: /BS. Medicare CURRENT HOME/COMMUNITY SERVICES/EQUIPMENT:: No current services or equipment. PRIMARY CARE PHYSICIAN:: Ruth Jean Baptiste DO. POTENTIAL DISCHARGE NEEDS:: Follow up appointment with PCP. PATIENT/FAMILY EDUCATION NEEDS:: Review of discharge instructions, discuss Ask Me Three. ANTICIPATED BARRIERS TO DISCHARGE:: None identified. TRANSPORTATION:: Via private vehicle with her , Darvin. PLAN:: Jo continues to be closely monitored at this time. Anticipate she will return home when ready per MD, follow up with her PCP and plan of care as prescribed. She will transport via private vehicle with her , Darvin. CM continues to follow.
[2020-09-18 03:30] VITALS: BP 123/74; PULSE 76; RESP 17; TEMP 36.6; O2SAT 98
[2020-09-18 07:29] VITALS: BP 174/76; PULSE 63; RESP 14; TEMP 36.8; O2SAT 99
--- NOTE | 2020-09-18 08:19 | PGE_ITS ---
Date of Service Date of service: 09/18/20 Time of Service: 08:20 Assessment and Plan Assessment and plan (1) Small bowel obstruction: Status: Acute Assessment and plan: She is symptoms free Will try soft diet for breakfast and discharge if tolerated. Discharge instructions discussed. Subjective Subjective Interval history since last seen: Feels much better. Pain level is zero. Heating pad helped. Tolerating clears. No nausea since yesterday am. Passing flatus. No BM yet Exam Narrative Exam Narrative: Appears well Abdomen not distended. Soft, non tender. Objective Last Vital Signs Temp 98.2 F 09/18/20 07:29 Pulse 63 09/18/20 07:29 Resp 14 09/18/20 07:29 BP 174/76 H 09/18/20 07:29 Pulse Ox 99 09/18/20 07:29 Laboratory Results - last 24 hr 09/16/20 21:40 COVID-19 PCR Negative Nasopharyn COVID-19 PCR Not Applicable Ref Test Perform Site [facility] lab
--- NOTE | 2020-09-18 08:22 | DSE_ITS ---
Date of service: 09/18/20 Time of Service: 08:22 DS: Diagnosis Discharge Diagnosis (1) Small bowel obstruction: Status: Acute Discharge Plan Disposition Patient Disposition: HOME Condition: Good Discharge Details Reason For Visit: SMALL BOWEL OBSTRUCTION Admit Date/Time: 09/16/20 21:16 Admit Provider: Margarita Whittaker Attending Provider: Margarita Whittaker Primary Care Provider: Julianne Jean Baptisteyce [place] Hospital Course Hospital Course: The patient presented with symptoms and CT scan findings consistent with a small bowel obstruction. She rapidly improved with bowel rest. The day after admission she was tolerating clears and passing flatus. The morning of discharge she was afebrile, pain free, passing flatus. Her abdominal exam was benign. She was discharged to home. Home Meds and New Rx's Prescriptions: Continued mupirocin 2 % ointment 1 applic Topical BID PRNRF: 0 famotidine 20 MG tablet 1 tab PO bid prn RF: 0 epinephrine [EpiPen 2-Melchor] 0.3 MG/0.3 ML auto-injector 0.3 mg IM ONCE Qty: 1 RF: 2 acyclovir [Zovirax] 30 GM ointment 1 applic Topical TID PRN Qty: 30 RF: 4 acetaminophen 500 mg tablet 1,000 mg PO Q8H PRN (Reason: pain) Qty: 90 RF: 3 celecoxib 200 mg capsule 200 mg PO BID PRN (Reason: pain) Qty: 60 RF: 1 Discharge Instructions Additional Instructions: Consume a soft diet/smaller meals for a week. Walk as much as tolerated Take Colace 1- 2 times/day as needed for constipaton Call the office or confidential investigator surgeon with any increased pain, nausea, vomiting or lack of bowel activity Referrals: Margarita Whittaker MD [ [facility] STAFF PHYSICIAN] - (Return as needed) Activity:: Activity as Tolerated Equipment/Supplies:: No Equipment Needed Diet:: Soft for one week Discharge Orders Discharge Orders: Discharge Order (Routine); Ordered 09/18/20 Ordered By: Margarita Whittaker DS: Summary Status at Discharge Functional status at discharge: independent ambulation Overall status at discharge: patient is back to baseline Mental Status: mental status grossly normal Speech and Movement: speech and movement normal Mood: congruent mood Affect: normal affect Exam Psych Mental Status: mental status grossly normal Speech and Movement: speech and movement normal Mood: congruent mood Affect: normal affect DS: Data Vitals/I&O Vitals and I&O: Vital Signs Temperature 98.2 F 09/18/20 07:29 Temperature Source Tympanic 09/18/20 07:29 Pulse 63 09/18/20 07:29 Pulse Rhythm Regular 09/18/20 02:24 Respiratory Rate 14 09/18/20 07:29 Respiratory Effort Non-Labored 09/18/20 02:24 Respiratory Depth Normal 09/18/20 02:24 Respiratory Pattern Normal 09/18/20 02:24 Blood Pressure 174/76 H 09/18/20 07:29 Blood Pressure Mean 82 09/16/20 21:30 Blood Pressure Position Sitting 09/16/20 19:49 Pulse Oximetry 99 09/18/20 07:29 Oxygen Delivery Method Room Air 09/18/20 07:29 Oxygen Flow Rate 0 09/18/20 07:29 Pain Level 0 09/18/20 07:29 Comment 09/17/20 15:50 Intake & Output 09/17/20 09/17/20 09/18/20 11:59 23:59 11:59 Intake Total 956.25 / 2056.25 1100 / 2056.25 1000 / 1000 Output Total 550 / 550 300 / 300 Balance 406.25 / 1506.25 1100 / 1506.25 700 / 700 Intake: IV 956.25 / 2056.25 1100 / 2056.25 1000 / 1000 Output: Urine 550 / 550 300 / 300 Other: Urine Color Yellow Yellow Urine Appearance Clear Clear Clear Urine Odor None None Voiding Methods Toilet Toilet Toilet Data Completed and Pending Labs on day of discharge: Labs from last 24 hours 09/16/20 21:40 COVID-19 PCR Negative Nasopharyn COVID-19 PCR Not Applicable Ref Test Perform Site [facility] Medical History Alcohol intake above recommended sensible limits 03/05/14 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) [facility] [place] partial gastrectomy Dec 2012, Gleevec tx History of postoperative nausea and vomiting Hyperlipidemia Knee pain h/o knee injury Nasal lesion (03/28/18) Neck pain PAC (premature atrial contraction) (07/26/17) frequent - see 07/26/17 Pain in left buttock 04/05/17 Quit smoking 1985 Trigger point of right shoulder region (03/28/18) infraspinatus and rhomboid Vaginal atrophy (05/03/16) Surgical History Dilation and curettage uterine perforation H/O arthroscopy of knee Left - Right - 2017 History of carpal tunnel release Right PROCEDURES TUMOR REMOVAL 01/11/2013 S/P dilatation and curettage uterine perforatioin Status post arthroscopy of right shoulder (08/20/20) Mini-Open Distal Clavicle Excision; Arthroscopic Rotator Cuff Repair - Supraspinatus; Extensive debridement of anterior and posterior glenohumeral joint and rotator cuff; Subacromial Debridement with Acromioplasty Family History Mother , AGE 76 Essential hypertension Alzheimers disease Hyperlipidemia Father , AGE 78 Essential hypertension Heart disease Hyperlipidemia Stroke Brother Essential hypertension Hyperlipidemia Maternal Grandmother , AGE 78 Essential hypertension Heart disease Paternal Grandmother , AGE 89 Alzheimers disease Heart disease Social History Smoking/Tobacco Use Status: Former Tobacco Use Quit Date: 11/28/85 Second Hand Exposure: Yes Alcohol Intake: current Alcohol Intake frequency: 0-2 drinks per day Alcohol type: beer, wine and hard liquor Drug use: Never Substance use type: does not use Caregiver/Support person: No Household members: spouse Pets and animals: Yes Pets and animals: cat(s) Sexually active: Yes Do you think of yourself as: straight/heterosexual Current gender identity: female What is your relationship status?: How often do you talk on the phone with friends or family?: three or more times per week How often do you get together with friends or relatives?: decline to answer How often do you attend gnosticism or yarsanism services?: decline to answer Do you belong to any clubs or organized social groups?: yes Panel score (0-1 are the most socially isolated patients): 3 What type of physical activity do you participate in: walking and other Details: some tennis Duration: 45-60 minutes/day Frequency: 5-6 times per week Sindi/Zoroastrianism: None Special sindi needs: No Seatbelt use: always Helmet use: Yes Helmet use: always Drive intox or ride w/intox route driver salesperson: No Do you feel safe at home: Yes Do you feel safe in your relationship?: Yes
[2020-09-18 09:16] VITALS: BP 133/76
--- NOTE | 2020-09-18 11:02 | PDOC.CMDIS ---
LACE Index Scoring Tool - Questions: Length of Stay (in days): 2 Acuity (Admit via E.D.?): Yes E.D. Visits: 1 - Answers: Total Score: 6 Risk of Readmission: Low Risk Care Management Discharge Reason for Hospitalization: SBO Discharge Plan: Jo will return home when ready per MD, follow up with her PCP and plan of care as prescribed. She will transport via private vehicle with her , Darvin. Patient/Family Education Needs: Review discharge instructions, discuss Ask Me Three.
== END 2020-09-18 10:04 | disposition home or self-care (01) | DRG 390 ==
LOC: ER 21:23 → MS 22:26
PROVIDERS: Admitting Provider Surgery; Emergency Provider Physician Assistant; PCP Family Medicine; Visit Provider Surgery
DX: K56.600 Partial intestinal obstruction, unspecified as to cause (principal); D64.9 Anemia, unspecified; I10 Essential (primary) hypertension; E78.5 Hyperlipidemia, unspecified; Z87.891 Personal history of nicotine dependence
CPT/HCPCS: 36415; 71275; 74177; 80048; 80053; 83690; 90662; 93005; 96361; 96365; 96375; 99223; 99231; 99238; 99285; U0003; 81003; 81015; 83735; 84484; 85025; 93010; J0131; J1885; J2060; J2405; J3490

== ENCOUNTER → 2020-10-02 10:08 | Outpatient (BNVA) | payer MEDICARE, BC, SELFPAY | PROVIDERS: PCP Family Medicine; Referring Provider Family Medicine; Visit Provider Student in an Organized Health Care Education/Training Program | DX: Z47.89 Encounter for other orthopedic aftercare (principal) ==

== ENCOUNTER → 2020-11-13 10:43 | Outpatient (BNVA) | payer MEDICARE, BC, SELFPAY | PROVIDERS: PCP Family Medicine; Referring Provider Family Medicine; Visit Provider Student in an Organized Health Care Education/Training Program | DX: Z47.89 Encounter for other orthopedic aftercare (principal) ==

== ENCOUNTER 2021-03-13 03:54 | Outpatient (CLI) | payer MEDICARE, BC, SELFPAY ==
--- NOTE | 2021-03-13 06:30 | DI.MAMMO_ITS ---
EXAM: MG MAMMO SCREENING CLINICAL HISTORY: screening,Z12.39 TECHNIQUE: Bilateral full field digital CC and MLO mammographic images were obtained with 3D tomosyn thesis and utilizing computer aided detection (CAD). COMPARISON: Available for comparison. FINDINGS: Masses/Architectural Distortion: None seen. Microcalcifications: No suspicious pleomorphic-type are seen. Skin Thickening/Nipple Retraction: None. IMPRESSION: 1. No significant interval change with no specific features of malignancy noted. 2. Unless there is more urgent need, screening mammography is recommended, as per [place] [employer] guidelines. BI-RADS Category 1 - Negative Breast Density - Category C - Heterogeneously dense Breast density category C or D implies that the patient has dense breast tissue. Dense breast tissue is very common and is not abnormal but dense breast tissue can make it harder to find cancer on a ma mmogram. Also, dense breast tissue may increase their breast cancer risk. This information about the result of the mammogram report was provided to the patient to raise their awareness. Use this report when you speak with the patient about their risks for breast cancer, which includes their family hist ory. At that time, you may recommend for more screening tests (Ultrasound or MRI) as they might be us eful based on their risk. A negative radiographic report should not delay biopsy if a dominant or clinically suspicious mass is present. Up to ten percent of cancers are not identified on mammography. A negative report may reinforce clinical impression. Adenosis and dense breasts may obscure an underlying neoplasm. False positive reports average 6 to 10%. Patient will receive a letter notifying them of these results.
== END 2021-03-13 04:14 ==
PROVIDERS: PCP Family Medicine; Visit Provider Family Medicine
DX: Z12.31 Encounter for screening mammogram for malignant neoplasm of breast (principal)
CPT/HCPCS: 77063; 77067

== ENCOUNTER 2021-07-02 09:37 | Outpatient (CLI) | payer MEDICARE, BC, SELFPAY ==
--- NOTE | 2021-07-02 09:30 | RT.EKG_ITS ---
APPROVED REPORT Exam: Resting ECG Reason for Exam: Preop EKG Patient Location: O HR:86 bpm ECG Measurements Heart Rate 86 AXIS CO 175 P 84 QRSd 77 QRS 42 QT 374 T 58 QTc 447 Conclusion Sinus rhythm...normal P axis, V-rate 60- 99 Consider left ventricular hypertrophy...(S V1+R V5/V6) >3.25mV
== END 2021-07-02 09:38 | disposition home or self-care (01) ==
LOC: DI.CM 09:38
PROVIDERS: PCP Family Medicine; Visit Provider Family Medicine
DX: Z01.818 Encounter for other preprocedural examination (principal); I10 Essential (primary) hypertension
CPT/HCPCS: 93010

== ENCOUNTER 2021-07-17 09:39 | Day surgery (SDC) | payer MEDICARE, BC, SELFPAY ==
[2021-07-17 09:40] VITALS: BP 141/87; PULSE 97; RESP 18; TEMP 36.7; O2SAT 98
[2021-07-17] MEDS: Tropicam./Phenyleph. (1/2.5%) 5 ML BTL OS ×3 (10:00→10:12)
--- NOTE | 2021-07-17 10:04 | W.ANESPRE ---
General Info Date of Service Date Performed: 07/17/21 Height: 5 ft 3 in Weight: 52.9 kg Body Mass Index (BMI): 20.6 Surgical Procedure: Operation Date: 07/17/21 12:40 Proposed Procedures Side Surgeon p Cataract Extraction with IOL Implant Left Gunner Bey MD Meds Allergies and Home Medications Allergies Allergy/AdvReac Type Severity Reaction Status Date / Time venom-wasp Allergy Severe Anaphylaxsi Unverified 07/17/21 09:54 s venom-honey bee Allergy Unknown Verified 07/17/21 09:54 Home Medication Medication Instructions Recorded famotidine 1 tab PO bid prn tab-cap 02/24/13 epinephrine [EpiPen 2-Melchor] 0.3 mg IM ONCE #1 pen 04/26/15 acyclovir [Zovirax] 1 applic TOPICAL TID PRN #30 gm 03/28/18 mupirocin 2 % topical ointment 1 applic TOPICAL BID PRN gm 12/05/18 acetaminophen 1,000 mg PO Q8H PRN #90 tab 08/20/20 lisinopril 10 mg tablet 10 mg PO DAILY #90 tab 07/02/21 Current Visit Medications: Current Medications Generic Name Dose Route Start Last Admin Trade Name Freq PRN Reason Stop Dose Admin Acetaminophen 1,000 mg 07/17/21 06:00 Acetaminophen 500 Mg Tab PO Q4H PRN PRN Miscellaneous Medication 0 ml 07/17/21 06:00 Prednisolone 1%, Moxifloxacin 0.5%, Nepafenac 0.1% 5ml Btl OS DIRECTED [facility] Miscellaneous Medication 0 ml 07/17/21 06:00 07/17/21 10:00 Tropicam./Phenyleph. (1/2.5%) 5 Ml Btl OS 1 drp DIRECTED DENNIS Administration Tetracaine HCl 0 ml 07/17/21 06:00 Tetracaine 0.5% 4 Ml Btl OS DIRECTED DENNIS PFSH Active Problems Active Problems: Problem Status Onset Code Posterior subcapsular age-related cataract of left eye H25.042 Nuclear sclerotic cataract of left eye H25.12 Cataract H26.9 Essential hypertension I10 Toe pain M79.676 Small bowel obstruction K56.609 Status post arthroscopy of right shoulder 08/20/20 Z98.890 Localized osteoarthritis of right knee M17.11 Neck pain Arm paresthesia, right 03/28/18 R20.2 Bunion of great toe of right foot 04/24/15 M21.611 Degenerative tear of posterior horn of lateral meniscus of right knee 04/12/17 M23.351 Elevated MCV 12/05/16 R71.8 Hyperlipidemia E78.5 PAC (premature atrial contraction) 07/26/17 I49.1 Vaginal atrophy 05/03/16 N95.2 Medical History Medical History Alcohol intake above recommended sensible limits 03/05/14 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) [facility] [place] Gleevec [place] History of postoperative nausea and vomiting Hyperlipidemia Knee pain h/o knee injury Nasal lesion (03/28/18) Neck pain PAC (premature atrial contraction) (07/26/17) frequent - see 07/26/17 Pain in left buttock 04/05/17 Quit smoking 1985 Trigger point of right shoulder region (03/28/18) infraspinatus and rhomboid Vaginal atrophy (05/03/16) Surgical History Surgical History Dilation and curettage uterine perforation H/O arthroscopy of knee Left - ~1977 Right - 2017 History of carpal tunnel release Right PROCEDURES TUMOR REMOVAL 01/11/2013 S/P dilatation and curettage uterine perforatioin Status post arthroscopy of right shoulder (08/20/20) Mini-Open Distal Clavicle Excision; Arthroscopic Rotator Cuff Repair - Supraspinatus; Extensive debridement of anterior and posterior glenohumeral joint and rotator cuff; Subacromial Debridement with Acromioplasty Tobacco Smoking/Tobacco Use Status: Former Tobacco Use Passive smoking exposure: Yes Second hand exposure: Yes Alcohol Alcohol Intake: current Alcohol intake frequency: 0-2 drinks per day Alcohol type: beer, wine and hard liquor Substance Use Substance use: Never Substance use type: does not use Vital Signs and Lab Results Vital Signs Most Recent Vital Signs in EMR: Most Recent Vital Signs Temp Pulse Resp BP Pulse Ox 36.7 C 97 H 18 141/87 H 98 07/17/21 09:40 07/17/21 09:40 07/17/21 09:40 07/17/21 09:40 07/17/21 09:40 Lab Results Blood Type / Crossmatch: No Data to Display Complete Blood Count: No Data to Display Complete Metabolic Panel: No Data to Display Liver Function Panel: No Data to Display Coagulation Panel: No Data to Display Cardiac Panel: No Data to Display Arterial Blood Gas: No Data to Display Venous Blood Gas: No Data to Display Pancreas Panel: No Data to Display Thyroid Panel: No Data to Display Infectious Disease: No Data to Display Blood Cultures: No Data to Display Toxicology Panel: No Data to Display Imaging and Studies Imaging and Studies EKG Summary: Conclusion Sinus rhythm...normal P axis, V-rate 60- 99 Consider left ventricular hypertrophy...(S V1+R V5/V6) >3.25mV 07/02/21 Anesthesia Assessment and Plan Anesthesia History Personal History: PONV Family History: No Family History of Anesthesia Complications Exercise Tolerance Exercise Tolerance: Metabolic Equivalents>4 Pertinent Negatives Pertinent Negatives: No Symptoms of GERD (Gerd with spicy food only), No Major Cardiovascular Symptoms or Complaints, No Major Pulmonary Symptoms or Complaints and No History of CVA/TIA Cardiac & Pulmonary Exam Cardiac Exam: Normal S1/S2 Heart Sounds Pulmonary Exam: Clear Bilateral Breath Sounds Airway Exam Known Difficult Airway: No Mallampati Class: 2 Mouth Opening: Narrow (< 3cm) Thyromental Distance: Greater than 3 cm Neck Range of Motion: Full ROM Neck Circumference: Normal Teeth Condition: Normal Dentition ASA Classification ASA Score: ASA 2 Emergency Case?: No NPO Status NPO Status: NPO Clears >2 hours, Solids >8 hours Anesthesia Plan Resuscitation Status: Full Code Anesthesia Technique: MAC Anesthesia Airway Planned: Natural Airway Monitors Used: Standard Monitors
[2021-07-17 10:08] VITALS: BMI 20.6
[2021-07-17] MEDS: Tetracaine 0.5% 4 ML BTL OS (11:04)
[2021-07-17] MEDS: Duovisc Viscoelastic System EACH 1 EACH (11:05)
[2021-07-17] MEDS: Balanced Salt Soln.-PLUS 500 ML BAG (11:05)
[2021-07-17] MEDS: Lidocaine 1% Pres-Free 5 ML VIAL (11:06)
[2021-07-17] MEDS: Lidocaine 2% Jelly 6 ML SYR (11:06)
[2021-07-17] MEDS: Povidone-Iodine Ophth 30 ML BTL (11:07)
[2021-07-17 11:28] VITALS: BP 92/79; PULSE 77; RESP 16; TEMP 36.6; O2SAT 98
--- NOTE | 2021-07-17 11:30 | W.PM.DSUDISC ---
Discharge Plan Disposition Patient Disposition: HOME Condition: Good Discharge Details Attending Provider: Gunner Bey Primary Care Provider: Ruth Jean Baptiste Home Meds and New Rx's Prescriptions: No Action mupirocin 2 % ointment 1 applic Topical BID PRNRF: 0 lisinopril 10 mg tablet 10 mg PO DAILY Qty: 90 RF: 5 famotidine 20 MG tablet 1 tab PO bid prn RF: 0 epinephrine [EpiPen 2-Melchor] 0.3 MG/0.3 ML auto-injector 0.3 mg IM ONCE Qty: 1 RF: 2 acyclovir [Zovirax] 30 GM ointment 1 applic Topical TID PRN Qty: 30 RF: 4 acetaminophen 500 mg tablet 1,000 mg PO Q8H PRN (Reason: pain) Qty: 90 RF: 3 Discharge Instructions Stand Alone Forms: Post-op Topical Cataract, Press Ganey (DSU) Discharge Orders Discharge Orders: Discharge Order (Routine); Ordered 07/17/21 Ordered By: Gunner Bey DS: Diagnosis Discharge Diagnosis (1) Posterior subcapsular age-related cataract of left eye: Status: Resolved (2) Nuclear sclerotic cataract of left eye: Status: Resolved
--- NOTE | 2021-07-17 11:31 | W.PM.OP ---
Date of service: 07/17/21 Time of Service: 11:31 Operative Note Operative Note DATE OF PROCEDURE: 07/17/21 PRE-OP DIAGNOSIS: Nuclear/posterior subcapsular cataract, left eye POST-OP DIAGNOSIS: same PROCEDURE: Cataract extraction using phacoemulsification with intraocular lens implant, left eye SURGEON: Gunner Bey ANESTHESIA TYPE: Local By Surgeon and MAC Refer to Anesthesia Record PATHOLOGY: none sent COMPLICATIONS: None Patient was transported to: same day Patient's condition: stable Implants: Lars [employer] Lars / [employer] Tecnis [id number] Indications: Progressive decreased vision due to cataract, left eye, with poor red reflex Procedure Description: CATARACT SURGERY OPERATIVE REPORT PREOPERATIVE DIAGNOSIS: 1. Nuclear/posterior subcapsular cataract, left eye POSTOPERATIVE DIAGNOSIS: Same OPERATION: 1. Cataract extraction using phacoemulsification with posterior chamber intraocular lens implant, left eye. IOL: IOL Steam Roller Operator/Model: Lars & Lars / CHRISTELLE Tecnis [id number] IOL Power: + 23.0 diopters IOL Serial Number: [id number] Optic Diameter: 6.0 mm Haptic/Overall Diameter: 13.0 mm PHACO INFO: Navi #waywireurion Vision System with OZil and Active Fluidics Cumulative Dispersed Energy (CDE): 18.03 seconds SURGEON: Gunner Bey MD, KOURTNEY ANESTHESIA: Monitored A [facility] (MAC), with local sub-tenon's anesthetic infiltration COMPLICATIONS: None SPECIMENS: None INDICATIONS FOR PROCEDURE: The patient is a 71-year-old lady with history of diminished visual acuity in both eyes secondary to the development of bilateral nuclear and posterior subcapsular cataract. She has a history of myopia, and desires to remain myopic after cataract surgery. The option of cataract surgery was offered to the patient and she wished to proceed. Postoperative refractive target is -2.50 diopters. PROCEDURE: The correct surgical eye was identified and marked as the left eye and the pupil was dilated in the preoperative area using mydriatics and cycloplegics. The dilated pupil size was 7.0 mm. Oral sedation was administered in the form of an Imprimis MKO Melt (midazolam 3mg/ketamine 25mg/ondansetron 2mg). The patient was brought to the operating room where cardiopulmonary monitoring was instituted and surgical time-out was performed, confirming the correct operative eye and IOL power. Topical anesthesia was administered and ophthalmic povidone-iodine 5% was instilled into the conjunctival fornices. Lidocaine gel was applied to the cornea and the mango-ocular area was prepped with Betadine 10% solution and draped in the usual sterile fashion for intraocular surgery, including an aperture drape. A Tegaderm transparent film dressing was cut in half and used to cover the lashes and lid margins. Care was taken to sequester the lashes and lid margins under the Tegaderm dressing. A lid speculum was placed between the lids of the operative eye and the Annalise-Grady operating microscope was maneuvered into position. John scissors were then used to make a conjunctival buttonhole approximately 6mm posterior to the limbus in the inferonasal quadrant. Blunt dissection was carried out to expose bare sclera, and a blunt-tipped sub-tenon?s anesthesia cannula was introduced and passed posteriorly along the globe where non-preserved plain lidocaine was injected into posterior sub-Tenon?s space. A sideport knife was used to make a paracentesis port superiorly/superiortemporally. Intraocular phenylephrine/lidocaine was injected int the anterior chamber.. Air was then injected into the anterior chamber, followed by Vision Blue, which was painted over the anterior capsule and then irrigated out using BSS. The anterior chamber was filled with viscoelastic. A 2.4mm keratome knife was used to create a half-thickness groove at the limbus and then to construct a three-plane near-clear corneal tunnel extending 2.0mm into clear cornea at the 3:00 position. A flap was raised on the anterior capsule and capsulorhexis forceps were used to complete a continuous curvilinear capsulorhexis of 5.5 mm. Balanced salt solution was then used to perform cortical cleaving hydrodissection and nuclear hydrodelineation until the lens could be freely rotated within the capsular bag. The lens nucleus was then disassembled and removed within the capsular bag and iris plane using phacoemulsification. Residual cortical material was removed using the 45-degree angled silicone I/A tip with 0.3mm port. The posterior capsule was carefully polished to remove as much residual lens epithelial cells as safely possible. The capsular bag was then inflated and the anterior chamber deepened with viscoelastic. The lens implant described above was inserted into the capsular bag using the CHRISTELLE [place] Injector. A Kuglen hook was used to dial the IOL into position. Residual viscoelastic was then removed first from posterior to the IOL, then from the anterior chamber using the I/A handpiece. The lens implant was noted to center nicely within the capsular bag. The incisions were stromally hydrated, and the anterior chamber was reformed using BSS. Then 0.5cc of moxifloxacin 1.0mg/ml were injected into the capsular bag and anterior chamber. The incisions were checked with a Weck spear and found to be secure. Several drops of ophthalmic povidone-iodine 5% were then applied to the eye followed by two drops of Imprimis combination prednisolone/moxifloxacin/nepafenac solution. The drapes were removed and a clear plastic protective eye shield was placed over the eye. The patient was then returned to Same Day Surgery in stable condition.
--- NOTE | 2021-07-17 11:33 | W.ANESPOSTOP ---
Postoperative Evaluation Date, Time and Location Date Performed: 07/17/21 Time Performed: 11:33 Patient Location: Day Surgery Unit Vital Signs Most Recent Imported Vital Signs: Most Recent Vital Signs Temp Pulse Resp BP Pulse Ox 36.6 C 77 16 92/79 L 98 07/17/21 11:28 07/17/21 11:28 07/17/21 11:28 07/17/21 11:28 07/17/21 11:28 Most Recent Manually Entered Vital Signs: Adult Blood Pressure: 92/79 Heart Rate: 76 Respirations: 12 Oxygen Saturation (%): 94 Temperature (C): 36.4 C Pain Score (0-10 Scale): 0 Pain Score Most Recent Pain Score: Most Recent Pain Score Pain Level 0 07/17/21 11:28 Assessment Mental Status: Awake (Alert & Oriented to Patient Baseline) Airway and Respiratory Function: Patent airway with normal (patient baseline) respiratory exam Cardiovascular Function: Hemodynamically Stable Hydration Status: Adequately Hydrated Nausea & Vomiting: No Nausea or Vomiting Pain: Pt. Denies Any Pain Peripheral Nerve Block: Patient did not receive a nerve block
[2021-07-17 11:34] VITALS: BP 92/79; PULSE 76; RESP 12; TEMPC 36.4; O2SAT 94
[2021-07-17 11:57] VITALS: BP 127/68; PULSE 83; RESP 16; TEMP 36.7; O2SAT 95
== END 2021-07-17 12:13 | disposition home or self-care (01) ==
PROVIDERS: PCP Family Medicine; Visit Provider Ophthalmology
PROC: (CPT 66984; principal; 2021-07-17 12:30)
DX: H25.042 Posterior subcapsular polar age-related cataract, left eye (principal); I10 Essential (primary) hypertension; E78.5 Hyperlipidemia, unspecified; I49.1 Atrial premature depolarization
CPT/HCPCS: 66984; V2632

== ENCOUNTER 2021-07-29 02:31 | Outpatient (CLI) | payer MEDICARE, BC, SELFPAY ==
[2021-07-29 14:26] LABS: Source Nasal/Nares
[2021-07-29 19:41] LABS: COVID-19 PCR Negative (Negative)
== END 2021-07-29 02:32 | disposition home or self-care (01) ==
LOC: LBO 02:32
PROVIDERS: PCP Family Medicine; Visit Provider Ophthalmology
DX: Z20.822 Contact with and (suspected) exposure to COVID-19 (principal); Z01.818 Encounter for other preprocedural examination
CPT/HCPCS: 87635

== ENCOUNTER 2021-07-31 07:30 | Day surgery (SDC) | payer MEDICARE, BC, SELFPAY ==
[2021-07-31] MEDS: Tropicam./Phenyleph. (1/2.5%) 5 ML BTL OD ×3 (07:56→08:15)
[2021-07-31 08:04] VITALS: BP 159/79; PULSE 74; RESP 16; TEMP 36.5; O2SAT 98
--- NOTE | 2021-07-31 08:38 | W.ANESPRE ---
General Info Date of Service Date Performed: 07/31/21 Height: 5 ft 3 in Weight: 53.7 kg Body Mass Index (BMI): 20.9 Surgical Procedure: Operation Date: 07/31/21 09:40 Proposed Procedures Side Surgeon p Cataract Extraction with IOL Implant Right Gunner Bey MD Meds Allergies and Home Medications Allergies Allergy/AdvReac Type Severity Reaction Status Date / Time venom-wasp Allergy Severe Anaphylaxsi Unverified 07/31/21 07:58 s venom-honey bee Allergy Unknown Verified 07/31/21 07:58 Home Medication Medication Instructions Recorded famotidine 1 tab PO bid prn tab-cap 02/24/13 epinephrine [EpiPen 2-Melchor] 0.3 mg IM ONCE #1 pen 04/26/15 acyclovir [Zovirax] 1 applic TOPICAL TID PRN #30 gm 03/28/18 mupirocin 2 % topical ointment 1 applic TOPICAL BID PRN gm 12/05/18 acetaminophen 1,000 mg PO Q8H PRN #90 tab 08/20/20 lisinopril 10 mg tablet 10 mg PO DAILY #90 tab 07/02/21 Current Visit Medications: Current Medications Generic Name Dose Route Start Last Admin Trade Name Freq PRN Reason Stop Dose Admin Acetaminophen 1,000 mg 07/31/21 06:00 Acetaminophen 500 Mg Tab PO Q4H PRN PRN Miscellaneous Medication 0 ml 07/31/21 06:00 Prednisolone 1%, Moxifloxacin 0.5%, Nepafenac 0.1% 5ml Btl OD DIRECTED [facility] Miscellaneous Medication 0 ml 07/31/21 06:00 07/31/21 08:15 Tropicam./Phenyleph. (1/2.5%) 5 Ml Btl OD 1 drp DIRECTED DENNIS Administration Tetracaine HCl 0 ml 07/31/21 06:00 Tetracaine 0.5% 4 Ml Btl OD DIRECTED [facility] PFSH Active Problems Active Problems: Problem Status Onset Code Posterior subcapsular age-related cataract of left eye H25.042 Nuclear sclerotic cataract of left eye H25.12 Cataract H26.9 Essential hypertension I10 Toe pain M79.676 Small bowel obstruction K56.609 Status post arthroscopy of right shoulder 08/20/20 Z98.890 Localized osteoarthritis of right knee M17.11 Neck pain Arm paresthesia, right 03/28/18 R20.2 Bunion of great toe of right foot 04/24/15 M21.611 Degenerative tear of posterior horn of lateral meniscus of right knee 04/12/17 M23.351 Elevated MCV 12/05/16 R71.8 Hyperlipidemia E78.5 PAC (premature atrial contraction) 07/26/17 I49.1 Vaginal atrophy 05/03/16 N95.2 Medical History Medical History Alcohol intake above recommended sensible limits 03/05/14 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) [facility] [place] Dec 2012, Gleevec tx History of postoperative nausea and vomiting Hyperlipidemia Knee pain h/o knee injury Nasal lesion (03/28/18) Neck pain PAC (premature atrial contraction) (07/26/17) frequent - see 07/26/17 Pain in left buttock 04/05/17 Quit smoking 1985 Trigger point of right shoulder region (03/28/18) infraspinatus and rhomboid Vaginal atrophy (05/03/16) Surgical History Surgical History Dilation and curettage uterine perforation H/O arthroscopy of knee Left - ~1977 Right - 2017 History of carpal tunnel release Right PROCEDURES TUMOR REMOVAL 01/11/2013 S/P dilatation and curettage uterine perforatioin Status post arthroscopy of right shoulder (08/20/20) Mini-Open Distal Clavicle Excision; Arthroscopic Rotator Cuff Repair - Supraspinatus; Extensive debridement of anterior and posterior glenohumeral joint and rotator cuff; Subacromial Debridement with Acromioplasty Tobacco Smoking/Tobacco Use Status: Former Tobacco Use Passive smoking exposure: Yes Second hand exposure: Yes Alcohol Alcohol Intake: current Alcohol intake frequency: 0-2 drinks per day Alcohol type: beer, wine and hard liquor Substance Use Substance use: Never Substance use type: does not use Vital Signs and Lab Results Vital Signs Most Recent Vital Signs in EMR: Most Recent Vital Signs Temp Pulse Resp BP Pulse Ox 36.5 C 74 16 159/79 H 98 07/31/21 08:04 07/31/21 08:04 07/31/21 08:04 07/31/21 08:04 07/31/21 08:04 Lab Results Blood Type / Crossmatch: No Data to Display Complete Blood Count: No Data to Display Complete Metabolic Panel: No Data to Display Liver Function Panel: No Data to Display Coagulation Panel: No Data to Display Cardiac Panel: No Data to Display Arterial Blood Gas: No Data to Display Venous Blood Gas: No Data to Display Pancreas Panel: No Data to Display Thyroid Panel: No Data to Display Infectious Disease: Coronavirus (COVID-19)(PCR) Negative (Negative) 07/29/21 11:02 07/29/21 Coronavirus 2019 Source Nasal/Nares 07/29/21 11:02 07/29/21 Blood Cultures: No Data to Display Toxicology Panel: No Data to Display Imaging and Studies Imaging and Studies EKG Summary: Conclusion Sinus rhythm...normal P axis, V-rate 60- 99 Consider left ventricular hypertrophy...(S V1+R V5/V6) >3.25mV 07/02/21 Anesthesia Assessment and Plan Anesthesia History Personal History: PONV Family History: No Family History of Anesthesia Complications Exercise Tolerance Exercise Tolerance: Metabolic Equivalents>4 Pertinent Negatives Pertinent Negatives: No Symptoms of GERD, No Major Cardiovascular Symptoms or Complaints, No Major Pulmonary Symptoms or Complaints and No History of CVA/TIA Cardiac & Pulmonary Exam Cardiac Exam: Normal S1/S2 Heart Sounds Pulmonary Exam: Clear Bilateral Breath Sounds Airway Exam Known Difficult Airway: No Mallampati Class: 2 Mouth Opening: Narrow (< 3cm) Thyromental Distance: Greater than 3 cm Neck Range of Motion: Full ROM Neck Circumference: Normal Teeth Condition: Normal Dentition ASA Classification ASA Score: ASA 2 Emergency Case?: No NPO Status NPO Status: NPO Clears >2 hours, Solids >8 hours Anesthesia Plan Resuscitation Status: Full Code Anesthesia Technique: MAC Anesthesia Airway Planned: Natural Airway Monitors Used: Standard Monitors
[2021-07-31 08:39] VITALS: BMI 20.9
[2021-07-31] MEDS: Tetracaine 0.5% 4 ML BTL OD (08:46)
[2021-07-31] MEDS: Lidocaine 1% Pres-Free 5 ML VIAL (08:47)
[2021-07-31] MEDS: Povidone-Iodine Ophth 30 ML BTL (08:47)
[2021-07-31] MEDS: Duovisc Viscoelastic System EACH 1 EACH (08:47)
[2021-07-31] MEDS: Lidocaine 2% Jelly 6 ML SYR (08:47)
[2021-07-31] MEDS: Balanced Salt Soln.-PLUS 500 ML BAG (09:00)
[2021-07-31 09:20] VITALS: BP 142/82; PULSE 74; RESP 18; TEMP 36.4; O2SAT 97
--- NOTE | 2021-07-31 09:20 | W.ANESPOSTOP ---
Postoperative Evaluation Date, Time and Location Date Performed: 07/31/21 Time Performed: : Patient Location: Day Surgery Unit Vital Signs Most Recent Imported Vital Signs: Most Recent Vital Signs Temp Pulse Resp BP Pulse Ox 36.5 C 74 16 159/79 H 98 07/31/21 08:04 07/31/21 08:04 07/31/21 08:04 07/31/21 08:04 07/31/21 08:04 Most Recent Manually Entered Vital Signs: Adult Blood Pressure: 142/82 Heart Rate: 72 Respirations: 10 Oxygen Saturation (%): 95 Temperature (C): 36.6 C Pain Score (0-10 Scale): 0 Pain Score Most Recent Pain Score: Most Recent Pain Score Pain Level 0 07/31/21 08:04 Assessment Mental Status: Awake (Alert & Oriented to Patient Baseline) Airway and Respiratory Function: Patent airway with normal (patient baseline) respiratory exam Cardiovascular Function: Hemodynamically Stable Hydration Status: Adequately Hydrated Nausea & Vomiting: No Nausea or Vomiting Pain: Pt. Denies Any Pain Peripheral Nerve Block: Patient did not receive a nerve block
--- NOTE | 2021-07-31 09:20 | W.PM.DSUDISC ---
Discharge Plan Disposition Patient Disposition: HOME Condition: Good Discharge Details Attending Provider: Gunner Bey Primary Care Provider: Ruth Jean Baptiste Home Meds and New Rx's Prescriptions: No Action mupirocin 2 % ointment 1 applic Topical BID PRNRF: 0 lisinopril 10 mg tablet 10 mg PO DAILY Qty: 90 RF: 5 famotidine 20 MG tablet 1 tab PO bid prn RF: 0 epinephrine [EpiPen 2-Melchor] 0.3 MG/0.3 ML auto-injector 0.3 mg IM ONCE Qty: 1 RF: 2 acyclovir [Zovirax] 30 GM ointment 1 applic Topical TID PRN Qty: 30 RF: 4 acetaminophen 500 mg tablet 1,000 mg PO Q8H PRN (Reason: pain) Qty: 90 RF: 3 Discharge Instructions Stand Alone Forms: Post-op Topical Cataract, Press Ganey (DSU) Discharge Orders Discharge Orders: Discharge Order (Routine); Ordered 07/31/21 Ordered By: Gunner Bey DS: Diagnosis Discharge Diagnosis (1) Nuclear sclerotic cataract of right eye: Status: Resolved (2) Posterior subcapsular age-related cataract, right eye: Status: Resolved
[2021-07-31 09:22] VITALS: BP 142/82; PULSE 72; RESP 10; TEMPC 36.6; O2SAT 95
--- NOTE | 2021-07-31 09:23 | ROE_ITS ---
Date of service: 07/31/21 Time of Service: 09:23 Operative Note Operative Note DATE OF PROCEDURE: 07/31/21 PRE-OP DIAGNOSIS: Nuclear/posterior subcapsular cataract, right eye POST-OP DIAGNOSIS: same PROCEDURE: Cataract extraction using phacoemulsification with intraocular lens implant, right eye SURGEON: Gunner Bey ANESTHESIA TYPE: Local By Surgeon and MAC Refer to Anesthesia Record ESTIMATED BLOOD LOSS: 0 PATHOLOGY: none sent COMPLICATIONS: None Patient was transported to: same day Patient's condition: stable Implants: Lars & Lars/CHRISTELLE Tecnis [id number] Indications: Progressive visual loss due to cataract, right eye Procedure Description: CATARACT SURGERY OPERATIVE REPORT PREOPERATIVE DIAGNOSIS: 1. Nuclear/posterior subcapsular cataract, right eye POSTOPERATIVE DIAGNOSIS: Same OPERATION: 1. Cataract extraction using phacoemulsification with posterior chamber intraocular lens implant, right eye. IOL: IOL System Manager/Model: Lars & Lars / CHRISTELLE Tecnis [id number] IOL Power: + 19.5 diopters IOL Serial Number: [id number] Optic Diameter: 6.0mm Haptic/Overall Diameter: 13.0mm PHACO INFO: Navi Pinsurion Vision System with OZil and Active Fluidics Cumulative Dispersed Energy (CDE): 8.16 seconds SURGEON: Gunner Bey MD, KOURTNEY ANESTHESIA: Monitored Anesthesia Care (MAC), with local sub-tenon's anesthetic infiltration COMPLICATIONS: None SPECIMENS: None INDICATIONS FOR PROCEDURE: The patient is a 71-year-old lady with history of diminished visual acuity in both eyes secondary to the development of bilateral cataracts. She is already undergone cataract surgery in the left eye, with postoperative refractive target of myopia, and is doing well postoperatively. She now presents for cataract surgery in the right eye, with postoperative refractive target of [place]. PROCEDURE: The correct surgical eye was identified and marked as the right eye and the pupil was dilated in the preoperative area using mydriatics and cycloplegics. The dilated pupil size was 7.0 mm. [facility] The patient was brought to the operating room where cardiopulmonary monitoring was instituted and surgical time-out was performed, confirming the correct operative eye and IOL power. Topical anesthesia was administered and ophthalmic povidone-iodine 5% was instilled into the conjunctival fornices. Lidocaine gel was applied to the cornea and the mango-ocular area was prepped with Betadine 10% solution and draped in the usual sterile fashion for intraocular surgery, including an aperture drape. A Tegaderm transparent film dressing was cut in half and used to cover the lashes and lid margins. Care was taken to sequester the lashes and lid margins under the Tegaderm dressing. A lid speculum was placed between the lids of the operative eye and the Annalise-Grady operating microscope was maneuvered into position. John scissors were then used to make a conjunctival buttonhole approximately 6mm posterior to the limbus in the inferonasal quadrant. Blunt dissection was carried out to expose bare sclera, and a blunt-tipped sub-tenon?s anesthesia cannula was introduced and passed posteriorly along the globe where non- preserved plain lidocaine was injected into posterior sub-Tenon?s space. A sideport knife was used to make a paracentesis port inferotemporally. Intraocular phenylephrine/lidocaine was injected into the anterior chamber. The anterior chamber was filled with viscoelastic. A 2.4mm keratome knife was used to create a half-thickness groove at the limbus and then to construct a three- plane near-clear corneal tunnel extending 2.0mm into clear cornea superiortemporally. A flap was raised on the anterior capsule and capsulorhexis forceps were used to complete a continuous curvilinear capsulorhexis of 5.0 mm. Balanced salt solution was then used to perform cortical cleaving hydrodissection and nuclear hydrodelineation until the lens could be freely rotated within the capsular bag. The lens nucleus was then disassembled and removed within the capsular bag and iris plane using phacoemulsification. Residual cortical material was removed using the I/A handpiece. The posterior capsule was carefully polished to remove as much residual lens epithelial cells as safely possible. The capsular bag was then inflated and the anterior chamber deepened with viscoelastic. The lens implant described above was inserted into the capsular bag using the CHRISTELLE [place] Injector. A Kuglen hook was used to dial the IOL into position. Residual viscoelastic was then removed first from posterior to the IOL, then from the anterior chamber using the I/A handpiece. The lens implant was noted to center nicely within the capsular bag. The incisions were stromally hydrated, and the anterior chamber was reformed using BSS. Then 0.5cc of moxifloxacin 1 .0mg/ml were injected into the capsular bag and anterior chamber. The incisions were checked with a Weck spear and found to be secure. Several drops of ophthalmic povidone-iodine 5% were then applied to the eye followed by two drops of Imprimis combination prednisolone/moxifloxacin/nepafenac solution. The drapes were removed and a clear plastic protective eye shield was placed over the eye. The patient was then returned to [facility] in stable condition.
== END 2021-07-31 09:48 | disposition home or self-care (01) ==
PROVIDERS: PCP Family Medicine; Visit Provider Ophthalmology
PROC: (CPT 66984; principal; 2021-07-31 09:30)
DX: H25.041 Posterior subcapsular polar age-related cataract, right eye (principal); E78.5 Hyperlipidemia, unspecified; D64.9 Anemia, unspecified
CPT/HCPCS: 66984; V2632

== ENCOUNTER 2021-10-12 03:32 | Outpatient (CLI) | payer MEDICARE, BC, SELFPAY ==
[2021-10-12 10:15] LABS: HCT 36.6 % (36.0-46.0); HGB 12.3 g/dL (11.2-15.7); MCH 31.8 pg (27.0-33.0); MCHC 33.6 % (32.0-36.0); MCV 94.6 fL (80-95); MPV 8.8 fL (8.0-11.0); Platelet Count 331 10^3/uL (130-400); RBC 3.87 10^6/uL (3.93-5.22); RDW 11.8 % (11.7-14.6); RDW-SD 41.1 fL; WBC 6.87 10^3/uL (4.4-10.8)
[2021-10-12 12:53] LABS: BUN 15 mg/dL (7-18); Calcium 9.8 mg/dL (8.5-10.1); Glucose 112 mg/dL (74-106)
[2021-10-12 12:54] LABS: Albumin 4.3 g/dL (3.4-5.0); Alkaline Phosphatase 91 U/L (46-116); Bilirubin, Total 0.9 mg/dL (0.2-1.0); CREATININE 0.7 mg/dL (0.55-1.02); Chloride 99 mmol/L (98-107); Potassium 4.8 mmol/L (3.5-5.1); Sodium 139 mmol/L (136-145); Total Protein 7.4 g/dL (6.4-8.2)
[2021-10-12 12:55] LABS: ALT 22 U/L (14-59); AST 17 U/L (15-37); Anion Gap 8.5 mmol/L (3-11); CO2 31.5 mmol/L (21.0-32.0)
== END 2021-10-12 03:33 | disposition home or self-care (01) ==
LOC: LBO 03:32
PROVIDERS: PCP Family Medicine; Visit Provider Family Medicine
DX: D64.9 Anemia, unspecified (principal); I10 Essential (primary) hypertension
CPT/HCPCS: 36415; 80053; 85027

== ENCOUNTER 2022-03-17 09:15 | Outpatient (REF) | payer MEDICARE, SELFPAY ==
[2022-03-18 02:40] LABS: COVID-19 RT-PCR UVMMC Result Negative (Negative)
== END 2022-03-17 09:16 | disposition home or self-care (01) ==
LOC: LBN 09:15
PROVIDERS: PCP Family Medicine; Visit Provider Family Medicine
DX: Z20.822 Contact with and (suspected) exposure to COVID-19 (principal)
CPT/HCPCS: U0003

== ENCOUNTER → 2022-10-07 02:16 | Outpatient (CLI) | payer MEDICARE, SELFPAY ==
--- NOTE | 2022-10-07 08:45 | DI.DEXA_ITS ---
Exam(s) XR DEXA BONE DENSITY W/WO FLOR EXAM: XR DEXA BONE DENSITY W/WO FLOR CLINICAL HISTORY: osteoporosis,M81.0 TECHNIQUE: COMPARISON: Comparison examination is 01/21/2009. FINDINGS: Lateral Spine Image: Unremarkable. No compression deformities identified. Left hip: Total T-Score: -1.2. This compares to -1.0 on the prior examination. This is a mild decrease in the bone mineral density. Total Z-Score: 0.5 T- and Z-scores: Findings are consistent with osteopenia. Lumbar Spine: Total T-Score: -1.6. This compares to -1.4 on the prior examination. This is a decrease in the bone mineral density. Total Z-Score: 0.7 T- and Z-scores: Findings are consistent with osteopenia. IMPRESSION: No evidence of osteoporosis.
== END ==
PROVIDERS: PCP Family Medicine; Visit Provider Family Medicine
DX: M85.89 Other specified disorders of bone density and structure, multiple sites (principal); Z13.820 Encounter for screening for osteoporosis
CPT/HCPCS: 77080

== ENCOUNTER 2023-01-05 02:23 | Outpatient (CLI) | payer MEDICARE, SELFPAY ==
--- NOTE | 2023-01-05 07:45 | DI.RAD_ITS ---
Exam(s) XR KNEE LT 3V AP,LAT,ELIZABET EXAM: XR KNEE LT 3V AP,LAT,ELIZABET CLINICAL HISTORY: left lateral knee pain, ? loose body,m25.562. TECHNIQUE: 2D digital imaging was performed of the left knee. Three images were obtained. AP, late ral and PA tunnel views were obtained. COMPARISON: None. FINDINGS: BONES: No acute fracture is present. No bony destructive lesion is seen. JOINTS: The knee is normally aligned. No joint effusion is seen. There is marked narrowing of the med ial femoral tibial joint. Tricompartment periarticular spurring is present. SOFT TISSUE: Normal. IMPRESSION: Osteoarthritis of the knee. DATA REPOSITORY: RADIATION DOSE DELIVERED:
== END 2023-01-05 02:43 ==
LOC: DI 02:24
PROVIDERS: PCP Family Medicine; Visit Provider Family Medicine
DX: M17.12 Unilateral primary osteoarthritis, left knee (principal)
CPT/HCPCS: 73562

== ENCOUNTER 2023-06-23 11:39 | Outpatient (CLI) | payer MEDICARE, SELFPAY ==
--- NOTE | 2023-06-23 11:52 | DI.RAD_ITS ---
Exam(s) XR SHOULDER RT COMPLETE 2+V EXAM: XR SHOULDER RT COMPLETE 2+V CLINICAL HISTORY: right shoulder pain. TECHNIQUE: 2D digital imaging was performed. COMPARISON: CR XR SHOULDER RT COMPLETE 2+V from 01/24/2020 FINDINGS: 3 views No evidence of fracture or dislocation or abnormal soft tissue calcifications. There are minimal deg enerative changes in the glenohumeral joint. Coracoid process unremarkable. No os acromiale. IMPRESSION: Mild degenerative changes. DATA REPOSITORY: RADIATION DOSE DELIVERED:
== END 2023-06-23 11:40 | disposition home or self-care (01) ==
LOC: DIORS 11:39
PROVIDERS: PCP Family Medicine; Referring Provider Family Medicine; Visit Provider Student in an Organized Health Care Education/Training Program
DX: Z98.890 Other specified postprocedural states (principal); M75.81 Other shoulder lesions, right shoulder
CPT/HCPCS: 99213; 73030

== ENCOUNTER → 2023-09-06 00:30 | Outpatient (CLI) | payer MEDICARE, SELFPAY ==
--- NOTE | 2023-09-06 07:30 | DI.MAMMO_ITS ---
Exam(s) MAMMO SCREENING EXAM: MAMMO SCREENING CLINICAL HISTORY: screening,z12.39 TECHNIQUE: Bilateral full field digital CC and MLO mammographic images were obtained with 3D tomosyn thesis and utilizing computer aided detection (CAD). COMPARISON: Available for comparison. FINDINGS: Masses/Architectural Distortion: There is a question of a new asymmetric density in the posterior sup erior left breast on the MLO view. Microcalcifications: No suspicious pleomorphic-type are seen. Skin Thickening/Nipple Retraction: None. IMPRESSION: 1. New asymmetric density in the posterior superior left breast on the MLO view. 2. This area should be further evaluated with a spot compression view. Ultrasound may be indicated a t that time. BI-RADS Category 0 - Assessment Incomplete: Need additional imaging evaluation Breast Density - Category C - Heterogeneously dense Breast density category C or D implies that the patient has dense breast tissue. Dense breast tissue is very common and is not abnormal but dense breast tissue can make it harder to find cancer on a ma mmogram. Also, dense breast tissue may increase their breast cancer risk. This information about the result of the mammogram report was provided to the patient to raise their awareness. Use this report when you speak with the patient about their risks for breast cancer, which includes their family hist ory. At that time, you may recommend for more screening tests (Ultrasound or MRI) as they might be us eful based on their risk. A negative radiographic report should not delay biopsy if a dominant or clinically suspicious mass is present. Up to ten percent of cancers are not identified on mammography. A negative report may reinforce clinical impression. Adenosis and dense breasts may obscure an underlying neoplasm. False positive reports average 6 to 10%. Patient will receive a letter notifying them of these results.
--- NOTE | 2023-09-06 14:45 | DI.RAD_ITS ---
Exam(s) XR CERVICAL SPINE COMP 4-5V EXAM: XR CERVICAL SPINE COMP 4-5V CLINICAL HISTORY: left neck and arm pain,m54.2,m75.81. TECHNIQUE: 2D digital imaging was performed. Five images were obtained. AP, odontoid, lateral and bi lateral oblique images were obtained. COMPARISON: No exams were available for comparison FINDINGS: The odontoid is intact. The lateral masses are well aligned. There is straightening of the normal ce rvical lordosis which may be due to muscle spasm. 2-3 mm anterolisthesis of C7 on T1 is noted. Ther e is disc space narrowing at C5-6 and C6-C7. Endplate osteophytes are seen from C4-5 through C6-C7. No acute fracture or subluxation is present. Moderate neural foraminal stenosis is seen on the right at C6-C7. The cervical thoracic junction is well maintained. The prevertebral soft tissues are unrem arkable. Lung apices are clear. IMPRESSION: Moderate degenerative changes in the cervical spine. DATA REPOSITORY: RADIATION DOSE DELIVERED:
== END ==
PROVIDERS: PCP Family Medicine; Visit Provider Family Medicine
DX: Z12.31 Encounter for screening mammogram for malignant neoplasm of breast (principal); M54.2 Cervicalgia; M75.81 Other shoulder lesions, right shoulder
CPT/HCPCS: 77063; 77067; 72050

== ENCOUNTER → 2023-09-09 14:15 | Outpatient (CLI) | payer MEDICARE, SELFPAY ==
--- NOTE | 2023-09-09 09:58 | DI.MAMMO_ITS ---
Exam(s) MAMMO SCREEN CALL BACK UNI EXAM: MAMMO SCREEN CALL BACK UNI CLINICAL HISTORY: F/U MAMMO, LT BREAST ASYMMETRIC DENSITY,R92.8 TECHNIQUE: Spot compression views with tomographic imaging were performed. COMPARISON: September 19 and exams back to 2013 FINDINGS: No suspicious masses or suspicious microcalcifications are seen. No persistent abnormality is seen on the additional views performed. The findings are consistent wit h overlying fibroglandular tissue. There has been no significant change from prior exams. IMPRESSION: BI-RADS Category 1, Negative Yearly screening mammography is recommended. Breast Density - Category C - Heterogeneously dense
== END ==
PROVIDERS: PCP Family Medicine; Visit Provider Family Medicine
DX: Z12.31 Encounter for screening mammogram for malignant neoplasm of breast (principal); R92.8 Other abnormal and inconclusive findings on diagnostic imaging of breast
CPT/HCPCS: 77063; 77067

== ENCOUNTER → 2023-10-17 13:25 | Outpatient (BNVA) | payer MEDICARE, SELFPAY | PROVIDERS: PCP Family Medicine; Visit Provider Student in an Organized Health Care Education/Training Program | DX: M75.81 Other shoulder lesions, right shoulder (principal); Z98.890 Other specified postprocedural states | CPT/HCPCS: 99213 ==

== ENCOUNTER 2023-11-29 01:57 | Outpatient (CLI) | payer MEDICARE, SELFPAY ==
[2023-11-29 13:40] LABS: ALT 20 U/L (14-59); AST 15 U/L (15-37); Albumin 4.1 g/dL (3.4-5.0); Alkaline Phosphatase 97 U/L (46-116); Anion Gap 9.7 mmol/L (3-11); BUN 16 mg/dL (7-18); Bilirubin, Total 1.1 mg/dL (0.2-1.0); CO2 27.3 mmol/L (21.0-32.0); CREATININE 0.9 mg/dL (0.55-1.02); Calcium 9.6 mg/dL (8.5-10.1); Chloride 101 mmol/L (98-107); Estimated GFR 67.08 (mL/min/1.73m2); Glucose 119 mg/dL (74-106); Potassium 3.9 mmol/L (3.5-5.1); Sodium 138 mmol/L (136-145); TSH (W/Ref FT4) 0.83 uIU/mL (0.36-3.74); Total Protein 7.7 g/dL (6.4-8.2); Vitamin B12 325 pg/mL (193-986)
[2023-11-29 19:30] LABS: Rheumatoid Factor 8.7 IU/mL (<12.0)
[2023-11-30 12:03] LABS: SS-B (La) Ab, IgG <3.3 CU (<20.0)
[2023-11-30 12:20] LABS: ANA Interpretation Negative (Negative)
== END 2023-11-29 01:58 | disposition home or self-care (01) ==
LOC: LOS 01:57
PROVIDERS: PCP Family Medicine; Visit Provider Family Medicine
DX: R43.2 Parageusia; I10 Essential (primary) hypertension; E03.9 Hypothyroidism, unspecified
CPT/HCPCS: 36415; 80053; 82607; 84443; 86038; 86235; 86431

== ENCOUNTER → 2024-01-09 15:21 | Outpatient (CLI) | payer MEDICARE, SELFPAY ==
--- NOTE | 2024-01-09 07:45 | DI.US_ITS ---
Exam(s) US LOWER EXTREMITY VENOUS LT EXAM: US LOWER EXTREMITY VENOUS LT CLINICAL HISTORY: Intermittent Left leg pain below knee ? bakers cysT,m79.605. TECHNIQUE: Lower extremity venous ultrasound performed using grayscale, color-flow, and spectral Do ppler analysis. COMPARISON: No exams were available for comparison FINDINGS: The common femoral, femoral and popliteal veins demonstrate normal compressibility, augmentation, and color Doppler. The posterior tibial veins are patent. No saphenous vein thrombosis or other superfi cial venous thrombosis is seen. No hematoma is seen. There is a small loculated popliteal cyst calvin uring 2.3 x 0.7 x 2.3 IMPRESSION: Small popliteal cyst. No evidence of DVT. DATA REPOSITORY:
--- NOTE | 2024-01-09 09:50 | DI.RAD_ITS ---
Exam(s) XR TIB/FIB LT EXAM: XR TIB/FIB LT CLINICAL HISTORY: intermittent left leg pain: knee to ankle,M79.605. TECHNIQUE: 2D digital imaging was performed of the left tibia and fibula. Two images were obtained. AP and lateral views were obtained. COMPARISON: No exams were available for comparison FINDINGS: BONES: No acute fracture is present. No bony destructive lesion is seen. There are marked degenerativ e changes seen in the knee. SOFT TISSUE: Normal. IMPRESSION: No acute or healing fracture. DATA REPOSITORY: RADIATION DOSE DELIVERED:
--- NOTE | 2024-01-09 09:50 | DI.RAD_ITS ---
Exam(s) XR KNEE LT 3V AP,LAT,ELIZABET EXAM: XR KNEE LT 3V AP,LAT,ELIZABET CLINICAL HISTORY: ? loose body in left knee, intermittent pain,m23.40,m25.562. TECHNIQUE: 2D digital imaging was performed of the left knee. Three images were obtained. AP, late ral and PA tunnel views were obtained. COMPARISON: CR XR KNEE LT 3V AP,LAT,ELIZABET from 01/05/2023 FINDINGS: BONES: No acute fracture is present. No bony destructive lesion is seen. JOINTS: There is marked narrowing of the medial femoral tibial joint. There osteophytes in all 3 guru nt compartments. No joint effusion is seen. No loose body. SOFT TISSUE: Normal. IMPRESSION: Marked arthrosis of the left knee. DATA REPOSITORY: RADIATION DOSE DELIVERED:
== END ==
PROVIDERS: PCP Family Medicine; Visit Provider Family Medicine
DX: M79.605 Pain in left leg
CPT/HCPCS: 73562; 73590; 93971

== ENCOUNTER → 2024-01-12 03:04 | Outpatient (CLI) | payer MEDICARE, SELFPAY ==
--- NOTE | 2024-01-12 08:30 | DI.MRI_ITS ---
Exam(s) MR LOWER JOINT LT WO EXAM: MR LOWER JOINT LT WO CLINICAL HISTORY: severe left knee and leg pain, refractory to medic S83.207A MENISCUS LEFT. TECHNIQUE: Multiplanar multisequence MRI was performed. COMPARISON: Plain films 09 January 2024 FINDINGS: BONES: There is no fracture or contusion pattern. Prominent spurring at the medial femoral condyle m edial tibial plateau. Mild spurring seen laterally. The tibia is positioned somewhat anteriorly wit h respect to the distal femur. JOINTS: No joint effusion is present. Articular cartilage: Patellofemoral joint: Cartilage thinning without focal defect. Medial femoral tibial joint: Cyst severe thinning extending down to bone. Lateral femoral tibial joint: Mild thinning. TENDONS: Extensor mechanism: Unremarkable. Medial retinaculum: Unremarkable. Lateral retinaculum: Unremarkable. Popliteus: Unremarkable. MUSCLES: Unremarkable. MENISCI: The medial meniscus is severely degenerated. The lateral meniscus shows mild degenerative intrasubstance signal. SOFT TISSUES: Small amount of fluid around the pes anserine tendons. LIGAMENTS: Anterior Cruciate: not visualized. Posterior Cruciate: Unremarkable. Medial Collateral:Unremarkable. Lateral Collateral: Unremarkable. IMPRESSION: Severe degenerative changes of the medial femoral tibial joint space was severe degeneration of the m eniscus. The ACL is not visualized, likely consistent with longstanding tear. DATA REPOSITORY:
== END ==
PROVIDERS: PCP Family Medicine; Visit Provider Family Medicine
DX: M17.12 Unilateral primary osteoarthritis, left knee (principal)
CPT/HCPCS: 73721

== ENCOUNTER 2024-01-13 09:23 | Outpatient (CLI) | payer MEDICARE, SELFPAY ==
[2024-01-13 10:07] LABS: Abs Immature Grans 0.02 10^3/uL (0.0-0.06); Absolute Basophil Count 0.06 10^3/uL (0.0-0.2); Absolute Eosinophil Count 0.17 10^3/uL (0.0-0.7); Absolute Lymphocyte Count 2.35 10^3/uL (1.2-3.4); Absolute Monocyte Count 0.77 10^3/uL (0.1-0.8); Absolute Neutrophil Count 5.04 10^3/uL (1.2-6.7); Basophils % 0.7; HCT 36.2 % (36.0-46.0); HGB 12.4 g/dL (11.2-15.7); Immature Grans % 0.2; Lymphocytes % 27.9; MCH 31.8 pg (27.0-33.0); MCHC 34.3 % (32.0-36.0); MCV 93 fL (80-95); MPV 8.3 fL (8.0-11.0); Monocytes % 9.2; Platelet Count 341 10^3/uL (130-400); RDW 12.2 % (11.7-14.6); RDW-SD 41.3 fL; WBC 8.41 10^3/uL (4.4-10.8)
[2024-01-13 10:39] LABS: Hemoglobin A1C 5.4 % (<5.7)
[2024-01-13 10:46] LABS: ALT 20 U/L (14-59); AST 16 U/L (15-37); Albumin 4.4 g/dL (3.4-5.0); Alkaline Phosphatase 93 U/L (46-116); Anion Gap 10.1 mmol/L (3-11); BUN 19 mg/dL (7-18); Bilirubin, Total 1.2 mg/dL (0.2-1.0); CO2 29.9 mmol/L (21.0-32.0); Calcium 9.9 mg/dL (8.5-10.1); Chloride 104 mmol/L (98-107); Estimated GFR 58.75 (mL/min/1.73m2); Glucose 127 mg/dL (74-106); Potassium 3.4 mmol/L (3.5-5.1); Sodium 144 mmol/L (136-145); Vitamin B12 691 pg/mL (193-986)
[2024-01-13 18:10] LABS: HIV-1/2 Ag & Ab Screen Negative (Negative)
[2024-01-16 09:40] LABS: Lyme Ab w Rflx to Lyme Confirm Negative (Negative)
[2024-01-16 11:39] LABS: IgA 221 mg/dL (85-499); IgG 950 mg/dL (610-1616); IgM 92 mg/dL (35-242)
[2024-01-16 15:15] LABS: Albumin 66.6 % (55.8-66.1); Albumin g/dL 5.2 g/dL (3.6-5.2); Total Protein 7.8 g/dL (6.3-8.2)
[2024-01-16 16:39] LABS: Anaplasma phagocytophilum Negative (Negative); B. miyamotoi PCR Negative (Negative); Babesia divergens/MO-1 Negative (Negative); Babesia duncani Negative (Negative); Babesia microti Negative (Negative); Ehrlichia chaffeensis Negative (Negative); Ehrlichia ewingii/canis Negative (Negative); Ehrlichia muris eauclairensis Negative (Negative)
== END 2024-01-13 09:24 | disposition home or self-care (01) ==
LOC: LBO 09:29
PROVIDERS: PCP Family Medicine; Visit Provider Family Medicine
DX: M21.372 Foot drop, left foot (principal); R43.2 Parageusia; Z11.4 Encounter for screening for human immunodeficiency virus [HIV]; I10 Essential (primary) hypertension
CPT/HCPCS: 36415; 80053; 82784; 87389; 87798; 82607; 83036; 84165; 85025; 86618

== ENCOUNTER 2024-08-21 11:36 | Outpatient (CLI) | payer MEDICARE, SELFPAY ==
[2024-08-21 13:08] LABS: ALT 20 U/L (14-59); AST 18 U/L (15-37); Albumin 3.9 g/dL (3.4-5.0); Alkaline Phosphatase 96 U/L (46-116); Anion Gap 6.3 mmol/L (3-11); BUN 17 mg/dL (7-18); Bilirubin, Total 0.84 mg/dL (0.2-1.0); CO2 29.7 mmol/L (21.0-32.0); CREATININE 0.9 mg/dL (0.55-1.02); Calcium 9.4 mg/dL (8.5-10.1); Chloride 101 mmol/L (98-107); Estimated GFR 66.67 (mL/min/1.73m2); Glucose 103 mg/dL (74-106); Potassium 4.1 mmol/L (3.5-5.1); Sodium 137 mmol/L (136-145); Total Protein 7.5 g/dL (6.4-8.2)
[2024-08-22 10:25] LABS: Hepatitis C Ab w Rflx HCV PCR Negative (Negative)
== END 2024-08-21 11:37 | disposition home or self-care (01) ==
PROVIDERS: PCP Family Medicine; Referring Provider Family Medicine; Visit Provider Family Medicine
DX: Z11.59 Encounter for screening for other viral diseases (principal); I10 Essential (primary) hypertension; Z23 Encounter for immunization; Z12.39 Encounter for other screening for malignant neoplasm of breast
CPT/HCPCS: 36415; 80053; 86803

== ENCOUNTER 2024-09-24 01:09 | Outpatient (CLI) | payer MEDICARE, SELFPAY ==
--- NOTE | 2024-09-24 07:15 | DI.MAMMO_ITS ---
Exam(s) MAMMO SCREENING EXAM: MAMMO SCREENING CLINICAL HISTORY: screening,z12.39 TECHNIQUE: Mammograms were interpreted according to the usual protocol including computer analysis w [employer] CAD system, tomosynthesis and C-view imaging. COMPARISON: 2014 through 2022 FINDINGS: The breasts are composed of heterogeneously dense fibroglandular densities, Breast Density category C . No suspicious masses or suspicious microcalcifications are seen. No skin thickening or abnormal axillary lymph nodes are seen. There has been no significant change from prior exams. IMPRESSION: BI-RADS Category 1, Negative mammogram. Yearly screening mammography is recommended. Breast Density Category C, heterogeneously Dense. The mammogram demonstrates the patient's breast tissue is dense. Dense breast tissue is very common a nd is not abnormal but dense breast tissue can make it harder to find cancer on a mammogram. Also, de nse breast tissue may increase breast cancer risk. This information about the result of the mammogram report was provided to the patient to raise their awareness. Use this report when you speak with the patient about their risks for breast cancer, which includes their family history. At that time, you may recommend additional screening tests (Ultrasound or MRI) as they might be useful based on their r isk. A negative radiographic report should not delay biopsy if a dominant or clinically suspicious mass is present. Up to ten percent of cancers are not identified on mammography. A negative report may reinforce clinical impression. Adenosis and dense breasts may obscure an underlying neoplasm. False positive reports average 6 to 10%.
== END 2024-09-24 01:29 ==
LOC: DI 01:09
PROVIDERS: PCP Family Medicine; Visit Provider Family Medicine
DX: Z12.31 Encounter for screening mammogram for malignant neoplasm of breast (principal); R92.323 Mammographic fibroglandular density, bilateral breasts
CPT/HCPCS: 77063; 77067

== ENCOUNTER 2024-12-17 13:11 | Outpatient (CLI) | payer MEDICARE, SELFPAY ==
--- NOTE | 2024-12-17 09:30 | DI.RAD_ITS ---
Exam(s) XR KNEE RT 4V AP,LAT,ELIZABET,PAT EXAM: XR KNEE RT 4V AP,LAT,ELIZABET,PAT CLINICAL HISTORY: eval R knee pain. TECHNIQUE: 2D digital imaging was performed. Three views. COMPARISON: CR XR KNEE RT 3V AP,LAT,ELIZABET from 12/06/2019 FINDINGS: BONES: No acute fracture is present. No bony destructive lesion is seen. JOINTS: There is mild anterior subluxation of the proximal tibial with respect to the femur. Mild na rrowing of the lateral femoral tibial joint space which is suboptimally profiled. Mild periarticular spurring throughout. Patellofemoral joint space is maintained. No joint effusion is seen. SOFT TISSUE: Normal. IMPRESSION: Azfc-wi-epqzdums degenerative changes. DATA REPOSITORY: RADIATION DOSE DELIVERED:
== END 2024-12-17 13:12 | disposition home or self-care (01) ==
LOC: DIORS 13:38
PROVIDERS: PCP Family Medicine; Referring Provider Family Medicine; Visit Provider Student in an Organized Health Care Education/Training Program
DX: M17.11 Unilateral primary osteoarthritis, right knee
CPT/HCPCS: 99213; 73564

== ENCOUNTER 2025-09-16 03:56 | Outpatient (CLI) | payer MEDICARE, SELFPAY ==
[2025-09-16 14:51] LABS: ALT 16 U/L (14-59); AST 19 U/L (15-37); Albumin 4.1 g/dL (3.4-5.0); Alkaline Phosphatase 88 U/L (46-116); Anion Gap 9.8 mmol/L (3-11); BUN 24 mg/dL (7-18); Bilirubin, Total 1.4 mg/dL (0.2-1.0); CO2 28.2 mmol/L (21.0-32.0); Calcium 9.7 mg/dL (8.5-10.1); Chloride 99 mmol/L (98-107); Estimated GFR 66.26 (mL/min/1.73m2); Glucose 97 mg/dL (74-106); Potassium 4.7 mmol/L (3.5-5.1); Sodium 137 mmol/L (136-145); Total Protein 7.7 g/dL (6.4-8.2)
== END 2025-09-16 03:57 | disposition home or self-care (01) ==
LOC: LOS 03:56
PROVIDERS: PCP Family Medicine; Visit Provider Family Medicine
DX: I10 Essential (primary) hypertension (principal)
CPT/HCPCS: 36415; 80053